=== PATIENT | male | born 1975 | race Hispanic/Latino ===

== ENCOUNTER 2018-03-15 18:48 | Inpatient (IN) | payer OTHER, SELFPAY ==
[2018-03-15 19:26] LABS: #Lymphocytes 1.3 thou/uL (1.20-3.40); #Monocytes 0.6 thou/uL (0.11-0.59); #Neutrophils 8.8 thou/uL (1.40-6.50); %Basophils 0.2 % (0.0-1.0); %Eosinophils 0.2 % (0.0-10.0); %Lymphocytes 12.1 % (21.0-51.0); %Monocytes 5.2 % (0.0-10.0); %Neutrophils 82.3 % (42.0-75.0); Hemoglobin 16.4 g/dL (14.0-18.0); Mean Corpuscular HGB CONC 34.5 g/dL (32.0-36.0); Mean Corpuscular Hemoglobin 29.5 pg (27.0-31.0); Mean Corpuscular Volume 85.5 fL (78.0-98.0); Mean Platelet Volume 7.4 fL (7.4-10.4); Platelet Count 365 thou/uL (130-400); RBC Distribution Width 11.7 % (11.5-14.5); Red Blood Cell (RBC) Count 5.55 mill/uL (4.70-6.10); White Blood Cell (WBC) Count 10.7 thou/uL (4.8-10.8)
[2018-03-15 19:38] LABS: INR-International Normal Ratio 1.1; PTT 31.4 SEC (22.9-36.1); Prothrombin Time 13.9 SEC (12.0-14.7)
[2018-03-15 19:51] LABS: ALT (SGPT) 16 U/L (8-55); AST (SGOT) 18 U/L (5-34); Albumin 3.9 g/dL (3.5-5.0); Alcohol Less than 10 mg/dL (Less than 10); Alkaline Phosphatase 114 U/L (40-150); Anion Gap 13 mmol/L (10-20); BUN (Urea Nitrogen) 13 mg/dL (8.9-20.6); Bilirubin, Total 0.3 mg/dL (0.2-1.2); Calc. Creatinine Clearance 0 mL/min (70-130); Calcium 9.9 mg/dL (7.8-10.44); Carbon Dioxide 29 mmol/L (22-29); Chloride 98 mmol/L (98-107); Estimated GFR-MDRD 70; Globulin 4.8 g/dL (2.4-3.5); Glucose 168 mg/dL (70-105); Lipase 22 U/L (8-78); Potassium 3.7 mmol/L (3.5-5.1); Protein, Total 8.7 g/dL (6.0-8.3); Sodium 136 mmol/L (136-145)
[2018-03-15 20:20] LABS: Bilirubin Negative (Negative); Blood, Urine Negative (Negative); Clarity CLEAR (Clear); Glucose, Urine (Dipstick) Negative (Negative); Leukocyte Negative (Negative); Nitrite Negative (Negative); Protein, Urine (Dipstick) Negative (Neg-Trace); Specific Gravity, Urine 1.012 (1.002-1.036)
[2018-03-15] MEDS ORDERED: Ibuprofen 800 MG TAB ONE (21:20)
[2018-03-15] MEDS ORDERED: Cyclobenzaprine 10 MG TAB ONE (21:20)
[2018-03-15 21:33] LABS: Amphetamine Not Detected (NotDetected); Barbiturates Screen Not Detected (NotDetected); Benzodiazepine Screen Not Detected (NotDetected); Cocaine Metabolite Screen Detected (NotDetected); Medtox Control Line Valid? VALID (VALID); Medtox Reader # READER 1; Methadone Not Detected (NotDetected); Methamphetamine Not Detected (NotDetected); Opiate Screen Not Detected (NotDetected); Oxycodone Screen Not Detected (NotDetected); Phencyclidine (PCP) Not Detected (NotDetected); THC/Cannabinoid Screen Not Detected (NotDetected); Tricyclic Screen Not Detected (NotDetected)
--- NOTE | 2018-03-15 23:11 | CT ---
CT LUMBAR SPINE: Technique: Multiple contiguous axial images were obtained through the lumbar spine with multiplanar r econstruction. History: Back pain. FINDINGS: The lumbar vertebrae maintain normal height and alignment. Disc spaces are preserved. Disc bulge at L2-3 seen resulting in mild central canal stenosis. Disc bulge at L3-4 also results in mild central canal stenosis. Mild anterolisthesis at L4-5. Prominent posterior facet hypertrophy. Broad based bulge. Severe centra l canal stenosis at this level. At L5-S1, diffuse disc bulge with prominent facet hypertrophy results in moderate central canal steno sis. IMPRESSION: Severe central canal stenosis at L4-5. Moderate central canal stenosis at L3-4 and L5-S1 as described . POS: [facility]
--- NOTE | 2018-03-15 23:37 | CT ---
CT THORACIC SPINE: Technique: Multiple contiguous axial images were obtained through the thoracic spine with multiplanar reconstructions. Indications: Mid back pain. No history of trauma is provided. Comparison: None . FINDINGS: Compression fracture involving the T7 vertebra results in severe loss of central and anterior height at T7. The height loss is estimated at over 75%. Fracture line extends through the entire T7 vertebra from anterior to posterior and there is mild comminution. Posterior elements appear preserved. There is also fracture involving the T8 vertebra with horizontal fracture extending from anterior to posterior. Minimal loss of height of T8. Posterior elements appear intact. The other thoracic vertebrae maintain height and alignment. There are mild degenerative changes prese nt. Review of soft tissues at T7 reveals paravertebral soft tissue prominence. There is a nodular mass li ke density which is pleural based in a paravertebral location on the left at the T7-8 level. In the c oronal plane, this mass density measures up to 5 cm craniocaudal dimension x approximately 3 cm AP di mension in the axial plane. Findings indicate neoplasm with paravertebral soft tissue involvement and pathologic fractures at T7 and T8. At the T6-7 disc space, no bulge or protrusion. At the T7-8 disc space, there is posterior disc bulge which appears to abut the cord. There is eviden ce of epidural extension of the soft tissue mass on the left at this level. T8-9: Posterior disc bulge is seen abutting the cord paracentrally on the left. IMPRESSION: There is a paravertebral mass which involves the pleura on the left at T7-8. Evidence of pathologic f ractures at T7-8 with severe compression of the T7 vertebra. Neoplasm would be suspected with possibl e epidural extension on the left at these levels. Recommend further evaluation with MRI of the thorac ic spine with and without contrast. POS: [facility]
--- NOTE | 2018-03-16 00:18 | PDOC.FPRHP ---
- History of Present Illness Chief Complaint: Abdominal pain, numbness, leg weakness History of Present Illness: 42 yo M presents for mid back pain and LUQ abdominal pain that started 2 months ago after lifting tiles, described as sharp and burning that radiates around the left side to his back. He also has RUQ pain that started 2 weeks ago that does not radiate. Both pains are worse with movement. He also has numbness bilaterally that starts at his midchest and goes down to his feet. Ascribes weakness in both legs. He denies urinary or bowel incontinence. He also has SOB and occasonal nausea, denies night sweats. In the ED, CT showed T7-T8 pathologic fractures and a L paravertebral 3x5 cm mass. He was given flexeril, IBP, and 1L of LR. Neurosurgery was consulted. - Allergies/Adverse Reactions Allergies Allergy/AdvReac Type Severity Reaction Status Date / Time No Known Allergies Allergy Unverified 03/16/18 01:18 - Home Medications Medication Instructions Recorded Confirmed Type No Known 03/16/18 03/16/18 History - History PMHx: None PSHx: None FHx: No fam hx of heart disease or cancer. HTN and DM reportedly "in everybody. " Social: Smokes crack cocaine frequently, denies using other drug use, last used yesterday. Drinks 8 beers daily, reports last drink 1 week ago. Smokes "5 cigarettes per month." - Review of Systems General: denies: fever/chills, weight/appetite/sleep changes, night sweats, fatigue Eyes: denies: eye pain, vision changes ENT: denies: nasal congestion, rhinorrhea Respiratory: reports: shortness of breath. denies: cough, congestion Cardiovascular: denies: chest pain, palpitation, edema Gastrointestinal: reports: nausea, abdominal pain. denies: vomiting, diarrhea, constipation, GI bleeding Genitourinary: denies: incontinence, dysuria Skin: denies: rashes, lesions Musculoskeletal: reports: pain. denies: tenderness Neurological: reports: numbness, weakness - Vital signs BP: [121/68] HR: [111] RR: [18] Tmax: [98.7] Pox: [96]% on [RA] Wt: [104 kg] - Physical Exam Constitutional: NAD, awake, alert and oriented, well developed HEENT: normocephalic and atraumatic, PERRLA, EOMI, conjunctiva clear, grossly normal hearing, MMM, oropharynx clear Neck: supple, no LAD Heart: RRR, normal S1/S2, no murmurs/rubs/gallops Lungs: CTAB, no respiratory distress, good air movement, no rales/rhonchi, no wheezing, no retractions Abdomen: soft, bowel sounds present, other (No TTP in LUQ and RUQ, patient states it is numb. No masses palpated, exam limited by obesity.) Musculoskeletal: normal structure, normal tone -Neurological: 4/5 on BLE for hip flexion strength. 5/5 plantar flexion and dorsiflexion bilat. Senior Tax [employer]st strength 5/5. No focal deficits. CN 2-12 intact. Numbness on mid-chest down through feet. Patellar reflexes 2+ Skin: no rash/lesions, capillary refill <2 seconds Heme/Lymphatic: no unusual bruising or bleeding, no purpura, no petechia Psychiatric: normal mood and affect, good judgment and insight, intact recent and remote memory FMR H&P: Results - Labs Result Diagrams: 03/15/18 19:15 03/15/18 19:15 Lab results: WBC 10.7 thou/uL (4.8-10.8) 03/15/18 19:15 Hgb 16.4 g/dL (14.0-18.0) 03/15/18 19:15 Hct 47.5 % (42.0-52.0) 03/15/18 19:15 MCV 85.5 fL (78.0-98.0) 03/15/18 19:15 Plt Count 365 thou/uL (130-400) 03/15/18 19:15 Neutrophils % 82.3 % (42.0-75.0) H 03/15/18 19:15 Sodium 136 mmol/L (136-145) 03/15/18 19:15 Potassium 3.7 mmol/L (3.5-5.1) 03/15/18 19:15 Chloride 98 mmol/L (98-107) 03/15/18 19:15 Carbon Dioxide 29 mmol/L (22-29) 03/15/18 19:15 BUN 13 mg/dL (8.9-20.6) 03/15/18 19:15 Creatinine 1.14 mg/dL (0.7-1.3) 03/15/18 19:15 Glucose 168 mg/dL (70-105) H 03/15/18 19:15 Calcium 9.9 mg/dL (7.8-10.44) 03/15/18 19:15 Total Bilirubin 0.3 mg/dL (0.2-1.2) 03/15/18 19:15 AST 18 U/L (5-34) 03/15/18 19:15 ALT 16 U/L (8-55) 03/15/18 19:15 Alkaline Phosphatase 114 U/L (40-150) 03/15/18 19:15 Serum Total Protein 8.7 g/dL (6.0-8.3) H 03/15/18 19:15 Albumin 3.9 g/dL (3.5-5.0) 03/15/18 19:15 Lipase 22 U/L (8-78) 03/15/18 19:15 Urine Ketones Negative mg/dL (Negative) 03/15/18 20:06 Urine Blood Negative (Negative) 03/15/18 20:06 Urine Nitrite Negative (Negative) 03/15/18 20:06 Ur Leukocyte Esterase Negative (Negative) 03/15/18 20:06 - EKG Interpretation EKG: wnl - Radiology Interpretation Other Status: image reviewed by me, report reviewed by me Additional comment: Pathologic fractures T7 (severe compression) and T8, with L paravertebral mass 5 cm (craniocaudal) x 3 cm (AP) extending from pleura FMR H&P: A/P - Problem List (1) Alcohol abuse Current Visit: Yes Status: Chronic Code(s): F10.10 - ALCOHOL ABUSE, UNCOMPLICATED (2) Crack cocaine use Current Visit: Yes Status: Chronic Code(s): F14.90 - COCAINE USE, UNSPECIFIED, UNCOMPLICATED (3) Fractured spine Current Visit: Yes Status: Acute Code(s): WCM0578 - (4) Paravertebral mass Current Visit: Yes Status: Acute Code(s): R22.2 - LOCALIZED SWELLING, MASS AND LUMP, TRUNK - Plan 42 yo M presents with paravertebral mass #Paravertebral Mass -Numbness from mid chest and down, abd pain and mid back pain x2 weeks; no bowel or urinary incontinence -EKG wnl -WBC: upper limit of normal, left shift -UA normal -Lipase negative -CT Thoracic Spine: T7 severe compression fracture, T8 fracture; Left paravertebral mass extending from the pleura T7-T8, 5x3 cm -CT Lumbar Spine: severe stenosis L4-5, mod stenosis L3-4 and L5-S1 -Neurosurgery consulted, appreciate recs -MRI pending -AM CBC -[place], Tylenol, IBP for pain control -zofran for nausea #Alcohol abuse -ASE protocol initiated -Reports 8 beers/day, reports last drink 7 days ago #Cocaine abuse -UDS + for cocaine -Patient reports frequently smoking crack cocaine, last used yesterday Dispo: >2 midnights PPX: lovenox FMR H&P: Upper Level - Pertinent history 42M presents for pain going on for 1.5 week on left back. It occurred after living heavy objects. It is not worst with food but worst with activities. Specifically denies trauma, fever, chills, sweat, N/V/D, dysuria or hematuria. Social history pertinent for cocaine use but denies other drug use. In ER, CT scan was done. It was pertinent for pathological fx of T7-T8. There was a paraspinus mass seen between T7-T8 with pleural involvement. Radiology recommends follow up MRI and neurosurgery was consulted who indicated they will see him tomorrow. - Pertinent findings Gen: Alert, oriented HEENT: Normocephalic, midline trachea CV: RRR with no apparent m/g/r Resp: CTA bilat GI: normoactive, protrubant abdomen, soft, no rigidity Ext: No edema MSK: No obvious deformities noted on exam. Pain to palpation of left throacic at T5-t7 level. Neuro: 4/5 strength in LE, sensation grossly intact, 2/4 patellar reflex, CN II- XII grossly intact - Plan Date/Time: 03/16/18 0016 I, [Jules Ly], have evaluated this patient and agree with findings/plan as outlined by internal consultant resident. Pertinent changes/additions are listed here. 1. Pathological Fx of thoracic spine - Fracture in T7-8 - Associated with canal stenosis of L3-S1, posterior disc protrusion of T7-8, T8 -9. - Neurosurgery consulted, currently planning to see patient tomorrow - Focus on pain control overnight - Consider use of decadron - At this time, exam does not suggest cauda equina. Will continue to monitor 2. Paraspinal mass - Involves pleura. Consider malignancy - In morning, MRI. Based on finding, may consult IR or Pulm to obtain sample for pathology 3. Cocaine abuse - Advise patient against cocaine use 4. Alcohol abuse - Last drink reported over 2 week ago, unlikely to go into withdrawal at this time - Advise patient against use Attending Addendum - Attending Addendum Date/Time: 03/15/18 [id number] I personally evaluated the patient and discussed the management with Dr. Reagan Tamayo /Yasmine. I agree with the History, Examination, Assessment and Plan documented above with any addition or exceptions noted below. Patient here with pain and numbness with associated spinal cord lesions and pathological fractures near mass like object. NSGY consult, will further characterize lesion tomorrow. Consider Decadron to help with neuro symptoms. Pain control as needed.
[2018-03-16] MEDS ORDERED: Ondansetron ODT 4 MG TAB SL PRN (00:25)
[2018-03-16] MEDS ORDERED: Ondansetron PF 4 MG/2 ML Vial IVP PRN (00:25)
[2018-03-16 01:12] VITALS: BMI 37.1
--- NOTE | 2018-03-16 01:17 | CON ---
DATE OF CONSULTATION: This is a 50-minute initial patient evaluation, of which greater than 50% of the exam was spent in counseling and coordinating the patient's care. Remainder of the exam was spent in review of the patient's medical records and review of appropriate imaging studies. CHIEF COMPLAINT: Mid to low back pain with bilateral lower extremity paresthesias. HISTORY OF PRESENT ILLNESS: Mr. Ross is a 42-year-old male, who presents to [facility] for the above complaints. He states, over the past 10 days to 2 weeks, he began to experience a gradual onset of the above symptoms. He states the pain originated in the low mid back and radiated into flank and into the abdomen with progression of paresthesias into the bilateral lower extremities in a nondermatomal distribution. He denies weakness in the legs or falls. He does report subjective sensory deficit in the bilateral lower extremities. He denies bowel or bladder issues. He is not on blood thinners. He does endorse tobacco use as well as crack cocaine use from time to time. Review of the patient's thoracic and lumbar spine CT shows concerning lesion in the T7 with extension into the T8. The radiology report notes possible metastatic lesion with possible pathologic fracture. There does not appear to be any type of malalignment of the spine and no fragment resulting in any central canal compromise. Review of the patient's lumbar spine is negative for acute fracture. PHYSICAL EXAMINATION: The patient is awake, alert, and appropriate. GCS currently is 15. He appears to have full strength in the bilateral upper and bilateral lower extremities with no worrisome myelopathic features on exam. He has intact sensation to light touch throughout the entire bilateral upper and bilateral lower extremities and into the truncal area. IMPRESSION AND DIAGNOSES: 1. Progressive mid to low back pain with radiation into the abdomen. 2. Bilateral lower extremity paresthesias. 3. T7 and T8 abnormality noted on CT concerning for metastatic lesion with possible pathologic fracture. PLAN: I discussed the patient's case and imaging with Dr. Cruz. Given the concern on the CT scan, we need more information and we will order MRIs of the cervical, thoracic, and lumbar spines with and without contrast. Ideally, the patient should be n.p.o. at midnight although at this time, there is no plan for neurosurgical intervention until we have results of the MRI. We will also need chest, abdomen, and pelvis CT scan with contrast to determine possible staging should this be any type of metastatic lesion. Family medicine colleagues will admit the patient and manage him medically; however, Neurosurgery will continue to follow until a definite plan is made whether the patient will require a neurosurgical intervention. At this time, Pain Control is also paramount. Please call with any changes in the patient's neurologic status, otherwise we will follow up on the MRIs once they have been completed. Job ID: [id number]
[2018-03-16] MEDS ORDERED: Acetaminophen 325 MG TAB PO PRN (01:19)
[2018-03-16] MEDS ORDERED: Enoxaparin Sodium 40 MG/0.4 ML SYRINGE SC SCH (01:19)
[2018-03-16] MEDS: HYDROcodone/Acetaminophen 5/325 mg Tablet PO PRN ×3 (01:38→18:15)
[2018-03-16 06:40] LABS: #Eosinphils 0.1 thou/uL (0.0-0.7); #Lymphocytes 1.5 thou/uL (1.20-3.40); #Monocytes 0.7 thou/uL (0.11-0.59); %Basophils 0.2 % (0.0-1.0); %Eosinophils 1.2 % (0.0-10.0); %Lymphocytes 18.2 % (21.0-51.0); %Monocytes 8.1 % (0.0-10.0); %Neutrophils 72.2 % (42.0-75.0); Hemoglobin 15.1 g/dL (14.0-18.0); Mean Corpuscular HGB CONC 34.2 g/dL (32.0-36.0); Mean Corpuscular Hemoglobin 29.5 pg (27.0-31.0); Mean Corpuscular Volume 86.2 fL (78.0-98.0); Mean Platelet Volume 7.8 fL (7.4-10.4); Platelet Count 339 thou/uL (130-400); RBC Distribution Width 11.6 % (11.5-14.5); Red Blood Cell (RBC) Count 5.11 mill/uL (4.70-6.10); White Blood Cell (WBC) Count 8.3 thou/uL (4.8-10.8)
[2018-03-16] MEDS: Ibuprofen 800 MG TAB PO SCH ×3 (07:13→21:30)
[2018-03-16] MEDS ORDERED: Iopamidol-370 76% 500 ML 1 ML ONE (09:00)
--- NOTE | 2018-03-16 10:53 | CT ---
CHEST CT WITH IV CONTRAST ABDOMEN AND PELVIC CT WITH IV CONTRAST: History: 42-year-old male with possible metastatic spinal lesion with mid back pain. Comparison: Noncontrast thoracic spine CT scan 03-15-18. FINDINGS: There is some left sided pleural thickening and minimal pleural based parenchymal changes in the left base and costophrenic angle region. No mediastinal mass. Very minimal right sided posterior pleural thickening. Again noted are pathologic fractures involving T7 and T8 with paraspinal soft tissue mass /masses with evidence for some epidural mass particularly ventrally adjacent to the posterior aspects of the T7 and T8 vertebral bodies. There are some destructive changes of the left T8 costovertebral joint as well. There does appear to be some potentially significant spinal canal stenosis at T7 and T 8 from the ventral epidural mass. Possibilities include that of neoplasm versus infection. This mass would be potentially amendable to percutaneous aspiration biopsy. In the abdomen and pelvis, the liver, gallbladder, pancreas, spleen, adrenal glands are unremarkable. The kidneys are unremarkable bilaterally. Normal appearing appendix. No evidence for adenopathy. The re is some multilevel severe spinal canal stenosis, most marked at L4-5. IMPRESSION: Extensive destructive changes involving T7 and T8 vertebral bodies with associated soft tissue mass i ncluding a prominent epidural component, destructive changes of the left T8 costovertebral joint with neoplasm being considered most likely followed by infection as etiologies. This paraspinal mass woul d be amendable to percutaneous aspiration biopsy. Severe lumbar spinal canal stenosis at L4-5. No neema dence for other significant acute process within the chest, abdomen, or pelvis. POS: [facility]
--- NOTE | 2018-03-16 13:23 | MRI ---
MRI CERVICAL SPINE WITH AND WITHOUT CONTRAST: Technique: Multiplanar, multisequence images of the cervical spine obtained. Post contrast images obt ained with administration of IV MultiHance. Indications: Possible metastatic spinal lesion. This is a follow up to a CT thorax of the spine which revealed a paravertebral mass at T7-8 with pathologic fractures at T7-8 and epidural extension. FINDINGS: The cervical vertebrae maintain normal height and alignment. The disc spaces are preserved. There is severe motion artifact, which especially degrades the T2 sagittal and axial images. This jess ecially degrades the cord at the C4, C5, and C6 levels. There is abnormal T2 signal within the cord a t these levels. There is disc bulge and spondylosis at C4-5 which does impinge on and compress the cord resulting in moderate cervical canal stenosis at this level. No cord enhancement is seen on the post contrast imag es. I cannot exclude myelomalacia within the cord at this level, however, the motion artifact prevents ad equate assessment of the cord signal. No other significant disc bulge or spondylosis. Cord is otherwise unremarkable. There is a congenital ly small cervical canal due to shortened pedicles. Post contrast images show enhancement surrounding the tip of the C7 vertebra. There is no osseous enh ancement and this is favored to represent inflammatory change rather than metastatic. No other abnormal enhancement identified. IMPRESSION: 1. Disc bulge and spondylosis at C4-5 compresses the cord and there is moderate cervical canal stenos is at this level. There is no cord enhancement. Evaluation of the cord is severely limited due to mot ion artifact on the T2 sequences. Myelomalacia cannot be excluded. Recommend patient return for repea t T2 sagittal and axial images at a time when patient can have reduced motion artifact. 2. There is focal enhancement in the soft tissues surrounding the tip of the spinus process at C7 at the site of the posterior ligament. No osseous enhancement. This is favored to be inflammatory rather than neoplastic. No other abnormal enhancement identified. POS: [facility]
--- NOTE | 2018-03-16 13:33 | MRI ---
MRI LUMBAR SPINE WITH AND WITHOUT CONTRAST: Technique: Multiplanar, multisequence MRI images were obtained through the lumbar spine pre and post contrast. Post contrast images were obtained with administration of IV MultiHance. Indications: Possible metastatic spinal lesion. Low back pain. Correlation: CT thoracic and lumbar spines performed yesterday. Thoracic CT shows a paravertebral mas s with known involvement at the T7-8 level. See MRI thoracic spine for characterization of those find ings. IMPRESSION: The lumbar vertebral maintain normal height and alignment and exhibit normal signal. The disc spaces are preserved with mild degenerative change in the L4-5 disc space. Congenitally small canal due to shortened pedicles. Mild bulge at L3-4 and facet hypertrophy results in mild to moderate central canal stenosis. Slight anterolisthesis at L4-5 with diffuse bulge and prominent facet and ligamentous hypertrophy res ults in severe central canal stenosis at this level. There is bilateral foraminal stenosis present. T his corresponds to the CT findings from yesterday. Mild central canal stenosis at L5-S1 is present primarily due to posterior hypertrophic change and co ngenitally small canal. There is bilateral foraminal stenosis at L5-S1. No abnormal enhancement. No evidence of metastasis involving the lumbar spine. IMPRESSION: 1. Congenitally small canal due to shortened pedicles. Severe central canal stenosis at L4-5 with tez ateral foraminal stenosis. Moderate central canal stenosis at L3-4 and L5-S1 with foraminal stenosis. POS: [facility]
--- NOTE | 2018-03-16 14:01 | MRI ---
MRI THORACIC SPINE WITH AND WITHOUT CONTRAST: Date: 03/16/18 HISTORY: 42-year-old male with pathologic fracture of thoracic spine. The findings were discussed by telephone with PA, Sukumar Fairchild, at the time of this dictation. TECHNIQUE: Multisequence MRI of thoracic spine obtained pre and post IV injection of 20 mL of MultiHance Gadolin ium based contrast agent, in sagittal and axial planes. FINDINGS: Heterogeneously hypointense T1 signal, and heterogeneously mixed hyperintense and hypointense signal on FLAIR and T2 WI, involving the T7 and T8 vertebral bodies. There is anterior wedge compression fra cture deformity of T7 with maximum of approximately 75% loss of height far anteriorly (based on the C T of yesterday). There is mild, approximately 10% loss of height of the mid portion of the T8 vertebr al body posteriorly. The enhancement of bone marrow is extensive, but there are regions of nonenhance ment at the superior aspect of T8 vertebral body and throughout the mid portions of the T7 vertebral body. There is also abnormal bone marrow enhancement involving the left side of the T6 vertebral body , although the T6-7 disc space is preserved, with no abnormal signal or abnormal enhancement. There i s T2 hyperintensity and mild partial enhancement of the T7-8 disc space. There is thick, heterogeneou sly enhancing soft tissue mass component surrounding the T7 and T8 vertebral bodies. In the preverteb ral space, this extends superiorly at least up to the T5 level, and extends inferiorly down to at willy st the T9-10 level. There is involvement by abnormal bone marrow signal and abnormal bone marrow enha ncement involving the bilateral pedicles and superior articular facets of T7 and T8, bilateral transv erse processes of T8, and right T7 transverse process. There is epidural enhancing mass component cau sing severe central spinal canal stenosis from upper T7 to lower T8 levels, that significantly compre sses the spinal cord. Of the prevertebral soft tissue mass component, there is an approximately 2 x 3 cm component posterior to the descending thoracic aorta in the left pleural space with thick rim enh ancement and nonenhancing central liquid component consistent with abscess. There is too much motion to evaluate for intramedullary signal abnormality, but there is probably edema at the levels of compr ession. No definite syringohydromyelia. IMPRESSION: 1. Severe destructive process with pathologic fractures and large soft tissue components, at T7 and T8. 2. Epidural soft tissue component causes significant cord compression. 3. This is evidence for infectious spondylitis, either tuberculous or bacterial. CODE CR. POS: [facility]
[2018-03-16] MEDS: Enoxaparin Sodium 40 MG/0.4 ML SYRINGE SC SCH (21:31)
--- NOTE | 2018-03-17 00:43 | CON ---
DATE OF CONSULTATION: 03/16/2018 HISTORY OF PRESENT ILLNESS: A 42-year-old Latin-Malag[place] gentleman, who was admitted to the hospital with bilateral low extremity pain and back pain in the thoracic lumbar area. This has been going for almost two weeks. 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 He drinks on average eight beers a day. He smokes crack cocaine every other day. He smokes 3 to 4 cigarettes a week without any previous history of TB, pneumonia, bronchial asthma. Pulmonary sinha, denies any coughing, wheezing, chest pain, chills, or sweats. He takes no medication on a regular basis. He is able to walk a fair distance without getting significant pain or numbness in his legs, but the pain has been persistent. PAST MEDICAL HISTORY: Otherwise no history of diabetes and hypertension. PREVIOUS SURGERIES: Knee surgery as a kid. CHRONIC MEDICATIONS: None. ALLERGIES: NONE. REVIEW OF SYSTEMS: Ten point negative. PHYSICAL EXAMINATION: GENERAL: Appears to be in no acute distress. VITAL SIGNS: Saturations are 97 on room air, respirations are 14, temperature is 98, blood pressure is 127/78. CHEST: No wheezing. No crackles. CARDIAC: Normal S1 and S2. No gallops. ABDOMEN: Soft. EXTREMITIES: No edema. NEUROLOGIC: He is awake, alert, responsive, moves all 4 extremities. LABORATORY DATA: White count is 8000, H and H 15 and 43, and platelet count is normal. His lytes are normal. His drug screen shows cocaine. Alcohol level is less than 10. Chest x-ray was reviewed, which did not show acute infiltrate. CT of the chest, abdomen, and pelvis was performed, which showed extensive destructive changes involving T7, T8 vertebral bodies with soft tissue mass, epidural component extending to the pleural surface. IMPRESSION: 1. Thoracic paraspinal abscess probably. 2. Drug abuse. 3. Alcohol abuse. Echo is being ordered to rule out endocarditis. We will consider Infectious Disease consult once we have input from Neurosurgery regarding treatment plan. There is nothing additional to at this stage, pulmonary sinha, unless he has a complication, i.e. pleural effusion from his extension of the T7, T8 infectious TIME SPENT: Pulmonary followup consultation note 70 minutes, 50% direct patient care. Job ID: [id number]
[2018-03-17] MEDS: HYDROcodone/Acetaminophen 5/325 mg Tablet PO PRN ×4 (03:33→20:53)
[2018-03-17 06:35] LABS: #Eosinphils 0.1 thou/uL (0.0-0.7); #Lymphocytes 1.2 thou/uL (1.20-3.40); #Monocytes 0.7 thou/uL (0.11-0.59); #Neutrophils 5.7 thou/uL (1.40-6.50); %Basophils 0.2 % (0.0-1.0); %Eosinophils 1.9 % (0.0-10.0); %Lymphocytes 15.4 % (21.0-51.0); %Monocytes 9.1 % (0.0-10.0); %Neutrophils 73.5 % (42.0-75.0); Mean Corpuscular HGB CONC 33.6 g/dL (32.0-36.0); Mean Corpuscular Hemoglobin 29.1 pg (27.0-31.0); Mean Corpuscular Volume 86.6 fL (78.0-98.0); Mean Platelet Volume 7.6 fL (7.4-10.4); Platelet Count 328 thou/uL (130-400); RBC Distribution Width 11.7 % (11.5-14.5); Red Blood Cell (RBC) Count 5.52 mill/uL (4.70-6.10); White Blood Cell (WBC) Count 7.8 thou/uL (4.8-10.8)
[2018-03-17] MEDS: Ibuprofen 800 MG TAB PO SCH ×3 (06:39→21:00)
--- NOTE | 2018-03-17 08:06 | PDOC.FM ---
- Subjective Subjective: Patient seen at bedside this morning resting comfortably. States that pain is well controlled and denies new or worsening symptoms. No acute events over night. - Objective MAR Reviewed: Yes Vital Signs & Weight: Vital Signs (12 hours) Temp Pulse Resp BP Pulse Ox 03/17/18 04:52 98.0 F 80 20 129/85 95 03/17/18 00:00 98.2 F 81 16 129/87 97 Weight Weight 104.326 kg I&O: 03/16/18 03/17/18 03/18/18 06:59 06:59 06:59 Intake Total 540 Output Total 350 Balance 190 Result Diagrams: 03/17/18 05:47 03/15/18 19:15 Radiology: MRI T spine c/w infectious spondylitis at T7 <Ministerio Aguilera - Last Filed: 03/17/18 08:04> - Objective Vital Signs & Weight: Vital Signs (12 hours) Temp Pulse Resp BP Pulse Ox 03/17/18 08:00 98.4 F 81 14 127/88 95 03/17/18 04:52 98.0 F 80 20 129/85 95 03/17/18 00:00 98.2 F 81 16 129/87 97 Weight Weight 104.326 kg I&O: 03/16/18 03/17/18 03/18/18 06:59 06:59 06:59 Intake Total 540 Output Total 350 Balance 190 Result Diagrams: 03/17/18 05:47 03/15/18 19:15 <Marcelino Rae - Last Filed: 03/17/18 09:49> Phys Exam - Physical Examination Constitutional: NAD HEENT: moist MMs Neck: no JVD Respiratory: clear to auscultation bilateral Cardiovascular: RRR, no significant murmur Musculoskeletal: no edema Decreased sensation to both LE. Normal strength Psychiatric: A&O x 3 Skin: no rash <Ministerio Aguilera - Last Filed: 03/17/18 08:04> Dx/Plan (1) Other infective spondylopathies, thoracic region Code(s): M46.54 - OTHER INFECTIVE SPONDYLOPATHIES, THORACIC REGION Status: Acute (2) Alcohol abuse Code(s): F10.10 - ALCOHOL ABUSE, UNCOMPLICATED Status: Chronic (3) Crack cocaine use Code(s): F14.90 - COCAINE USE, UNSPECIFIED, UNCOMPLICATED Status: Chronic - Plan Plan: T7 infectious spondylitis - unknown pathogen at this time. DDx include TB. Continue precautions until quant gold results. - Dr Estevez has been consulted, CT guided biopsy has been ordered and should be completed today - Neuro surg has been consulted and TLSO brace has been placed. Would expect them to wait for infectious work up prior to surgical intervention. - Neuro symptoms are stable at this time. 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 Would expect hospital stay of >48 hours. <Ministerio Aguilera - Last Filed: 03/17/18 08:04> Attending Addendum - Attending Addendum Date/Time: 03/17/18 0948 I personally evaluated the patient and discussed the management with Dr. Aguilera. I agree with the History, Examination, Assessment and Plan documented above with any addition or exceptions noted below. Patient stable. There is concern that his paraspinal mass is actually abscess formation and possible TB. ID on board, on airborne precautions. Awaiting IR biopsy today and further mgmt per those results. <Marcelino Rae - Last Filed: 03/17/18 09:49>
--- NOTE | 2018-03-17 09:44 | PRG ---
DATE OF SERVICE: 03/17/2018 SUBJECTIVE: Cody is scheduled for a CT-guided biopsy of the thoracic spine. OBJECTIVE: VITAL SIGNS: His temperature 98, pulse 84, sats 98% on room air, respirations 14, blood pressure 122/88. CHEST: He denies any difficulty breathing. No wheezing. No crackles. CARDIAC: Normal S1 and S2. No gallops. ABDOMEN: No masses. IMPRESSION: Destructive T7-T8 thoracic vertebrae with a large soft tissue component, rule out infection versus neoplasm. PLAN: Undergo CT-guided aspiration biopsy today. Supportive care. Pulmonary will follow. Job ID: [id number]
--- NOTE | 2018-03-17 10:34 | PRG ---
DATE OF SERVICE: 03/17/2018 This is a 30-minute initial hospital visit note, in which 30 minutes were spent reviewing the imaging and record evaluation, examination, patient formulation with plan greater than 50% time was spent in counseling on Piter Ross. CHIEF COMPLAINT: T7-T8 osteo diskitis with epidural abscess and phlegmon. I reviewed the notes of my colleague Sukumar Fairchild PA-C, and I agreed with his content. HISTORY OF PRESENT ILLNESS: Mr. Ross is a 42-year-old man, who presented with back pain. MRI and CT demonstrated osteo diskitis with destruction of the T7 and T8 vertebral bodies and disk space with epidural and paraspinal mass consistent with epidural abscess. The concern is this appears to be more of a tuberculosis appearance, and as such, Dr. Estevez has been consulted. The patient is on respiratory precautions. Obviously, this could be a bacterial infection as well and blood cultures have been obtained. I would recommend CT-guided needle biopsy as the patient on exam is alert, appropriate, and then a well-fitting TLSO clamshell brace with full strength throughout his bilateral lower extremity myotomes. He does have spinal cord compression and signal abnormality, and I would advocate the brace at all times for duration of 3 months only should he fail management with antibiotic or antitubercular medication and brace with associated neurologic decline or mechanical instability to the operating room. My hope is through CT-guided needle biopsy or blood culture we can identify the bacteria involved or tuberculosis. IMPRESSION: T7-T8 osteo diskitis with epidural abscess and spinal cord compression. Job ID: [id number]
--- NOTE | 2018-03-17 11:17 | CON ---
DATE OF CONSULTATION: 03/16/2018 REASON FOR CONSULTATION: Spinal inflammatory process. HISTORY OF PRESENT ILLNESS: A 42-year-old with a history of progressively worsening back pain with radiculopathy in the midthoracic area for the past 2 months. He initially blamed on physical activity for work. With worsening, he eventually ended up having an evaluation in the emergency room and CT scan showed T7 and T8 fractures in paravertebral mass. The patient had MRIs which showed the findings described below. He denies any headaches. No visual symptoms, sore throat, odynophagia, or dysphagia. No vomiting. No cough or sputum production. No chest pain. No genitourinary symptoms. No diarrhea or constipation. No joint symptoms. No skin disorder. Feels numbness in lower extremities and some weakness. PAST MEDICAL HISTORY: Otherwise negative. PAST SURGICAL HISTORY: Negative except for some foot intervention in the past associated with abscess formation. FAMILY HISTORY: Diabetes and hypertension. SOCIAL HISTORY: He uses cocaine. Drinks daily. Smokes intermittently. CURRENT MEDICATIONS: 1. [place]. 2. Lovenox. 3. Motrin. PHYSICAL EXAMINATION: VITAL SIGNS: T-max 98, blood pressure 120/85, pulse 80, respirations 20, and O2 saturation 95%. SKIN: Exam is not remarkable. GENERAL: The patient has a peripheral IV access and voiding in the urinal. LYMPH: No lymphadenopathy. HEENT: Ocular movements are conjugate. Oral cavity normal. Teeth in fairly decent shape. NECK: Supple. No jugular vein distention or carotid bruits. LUNGS: Symmetric. Clear breath sounds. HEART: S1 and S2. Regular rate. No S3 or S4. ABDOMEN: Soft, not distended, or tender. No bladder distention. Tenderness in the mid thoracic spine area noted. EXTREMITIES: Pulses are 1+ in the dorsalis pedis. He is able to lift his legs from the bed and flex and extend them with good strength. NEUROLOGIC: Plantar responses are flexor with no clonus. His cognitive function appears to be intact. LABORATORY DATA: White cell count 10.7, hemoglobin normal, platelets 365 with 82% neutrophils. INR 1.1. Chemistry with glucose 168. Serum total protein 8.7 and globulin 4.8. Urinalysis normal. Cocaine metabolites detected in the toxic screen. Microbiology pending. Echocardiogram with normal EF, some diastolic dysfunction. Thoracic spine MRI, severe destructive process with pathologic fractures and large soft tissue components T7 and T8. Soft tissue component causes severe cord compression. CT abdomen, pelvis, and chest with extensive destructive changes in T7 and T8, and soft tissue mass. ASSESSMENT: Otherwise, healthy middle-aged man with destructive thoracic spine process with paravertebral mass. Differential diagnosis includes malignancy versus atypical infection, particularly mycobacterium tuberculosis. Fungal infection such as blastomycosis, histoplasmosis, or less likely. Check human immunodeficiency virus, hepatitis C, syphilis serology. Get a CT-guided biopsy of the soft tissue mass for acid-fast stain, fungal stain, routine cultures and histopathology evaluation. Blood cultures x3. Job ID: [id number]
[2018-03-17] MEDS ORDERED: Sodium Bicarbonate 2.5 MEQ/5 ML VIAL ONE (11:19)
[2018-03-17] MEDS ORDERED: Midazolam HCl 2 mg/2 ml Vial ONE (11:19)
[2018-03-17] MEDS ORDERED: Fentanyl 100 MCG/2 ML VIAL ONE (11:19)
--- NOTE | 2018-03-17 14:27 | CT ---
CT GUIDED DEEP BONE BIOPSY: Date: 03/17/18 HISTORY: Osteomyelitis, diskitis. COMPARISON: MRI lumbar spine and thoracic spine prior day. FINDINGS: The patient was brought to the CT suite. All questions were answered. Informed consent was obtained, Timeout was performed. The patient's back was prepped and draped in the normal sterile fashion. Approximately 7 mL of lidoca ine was instilled into the superficial and deep soft tissues. Using CT guidance, the T7-T8 interspace was accessed. A small amount of tissue was initially aspirate d using an 18 gauge Chiba needle. Next, a total of two 22 mm 20 gauge cores were then obtained. Patho logy confirmed adequacy. IMPRESSION: Technically successful CT guided paraspinal/diskitis/osteomyelitis biopsy. POS: JELENA
[2018-03-17 15:33] LABS: HIV (1/2) Antibody/Antigen Non-Reactive (NonReactive); HIV 1/2 INDEX 0.11 S/CO (<1.00)
[2018-03-17] MEDS: Enoxaparin Sodium 40 MG/0.4 ML SYRINGE SC SCH (20:53)
[2018-03-18] MEDS: HYDROcodone/Acetaminophen 5/325 mg Tablet PO PRN ×3 (02:45→17:36)
[2018-03-18] MEDS: Ibuprofen 800 MG TAB PO SCH ×3 (05:43→21:26)
[2018-03-18 05:50] LABS: #Eosinphils 0.2 thou/uL (0.0-0.7); #Lymphocytes 1.3 thou/uL (1.20-3.40); #Monocytes 0.7 thou/uL (0.11-0.59); #Neutrophils 5.4 thou/uL (1.40-6.50); %Basophils 0.3 % (0.0-1.0); %Eosinophils 2.5 % (0.0-10.0); %Lymphocytes 16.6 % (21.0-51.0); %Monocytes 9.3 % (0.0-10.0); %Neutrophils 71.2 % (42.0-75.0); Mean Corpuscular Hemoglobin 28.6 pg (27.0-31.0); Mean Corpuscular Volume 86.4 fL (78.0-98.0); Mean Platelet Volume 7.8 fL (7.4-10.4); Platelet Count 309 thou/uL (130-400); RBC Distribution Width 11.6 % (11.5-14.5); Red Blood Cell (RBC) Count 5.25 mill/uL (4.70-6.10); White Blood Cell (WBC) Count 7.6 thou/uL (4.8-10.8)
--- NOTE | 2018-03-18 08:08 | PDOC.FM ---
- Subjective Subjective: Patient seen at bedside this morning resting comfortably. He has loosened his TSLO due to complaint of chest/abdominal cramping. He denies back pain or worsening neuro symptoms. CT guided biopsy was completed yesterday. - Objective MAR Reviewed: Yes Vital Signs & Weight: Vital Signs (12 hours) Temp Pulse Resp BP Pulse Ox 03/18/18 05:00 100 03/18/18 04:00 98.4 F 86 18 130/89 96 03/18/18 00:00 98 F 80 18 119/64 97 Weight Weight 104.326 kg I&O: 03/17/18 03/18/18 03/19/18 06:59 06:59 06:59 Intake Total 540 700 240 Output Total 350 550 350 Balance 190 150 -110 Result Diagrams: 03/18/18 05:13 03/15/18 19:15 Phys Exam - Physical Examination Constitutional: NAD HEENT: moist MMs Neck: no JVD Respiratory: clear to auscultation bilateral Cardiovascular: RRR, no significant murmur Gastrointestinal: soft, non-tender Musculoskeletal: no edema Decreased sensation of abdomen and both LE Psychiatric: A&O x 3 Skin: no rash, normal turgor Dx/Plan (1) Other infective spondylopathies, thoracic region Code(s): M46.54 - OTHER INFECTIVE SPONDYLOPATHIES, THORACIC REGION Status: Acute (2) Alcohol abuse Code(s): F10.10 - ALCOHOL ABUSE, UNCOMPLICATED Status: Chronic (3) Crack cocaine use Code(s): F14.90 - COCAINE USE, UNSPECIFIED, UNCOMPLICATED Status: Chronic - Plan Plan: T7 infectious spondylitis - unknown pathogen at this time. DDx include TB. Continue precautions until quant gold results. - prelim biopsy results show no bacterial pathogen. Cultures pending - Dr Estevez has been consulted - Neuro surg has been consulted and TLSO brace has been placed. Would expect them to wait for infectious work up prior to surgical intervention. - Neuro symptoms are stable at this time. - [place], Tylenol, IBP for pain control. 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 Would expect hospital stay of >48 hours. Addendum - Attending - Attending Attestation Date/Time: 03/18/18 4763 I personally evaluated the patient and discussed the management with Dr. Aguilera. I agree with the History, Examination, Assessment and Plan documented above with any addition or exceptions noted below. Patient stable, has some pain in his side assocaited with the TLSO brace and muscle spasms. Pathology pending and further mgmt and treatment is pending that result. Pain control as needed. Neuro status stable.
--- NOTE | 2018-03-18 09:57 | PRG ---
DATE OF SERVICE: 03/18/2018 SUBJECTIVE: This morning, he is awake, responsive, lot of back pain, await results from the CT-guided spinal mass. OBJECTIVE: VITAL SIGNS: Temperature 98.0, saturations 100% on room air, respiratory rate 18, and blood pressure 130/89. CHEST: Decreased breath sounds. No wheezing. CARDIAC: Normal S1 and S2. No gallops. ABDOMEN: No masses. IMPRESSION: 1. Spinal mass, status post CT-guided biopsy. 2. Await culture path report. 3. Pulmonary sinha, nothing additional to do at this stage. Treatment depending on the path report. Job ID: [id number]
[2018-03-18] MEDS: Docusate 100 MG CAP PO SCH ×2 (10:41→21:26)
[2018-03-18] MEDS: Cyclobenzaprine 10 MG TAB PO PRN ×2 (12:12→21:25)
[2018-03-18] MEDS: Enoxaparin Sodium 40 MG/0.4 ML SYRINGE SC SCH (21:26)
[2018-03-19] MEDS: Ibuprofen 800 MG TAB PO SCH ×3 (06:06→21:04)
--- NOTE | 2018-03-19 06:16 | PDOC.FM ---
- Subjective Subjective: 42 yo male seen at bedside this AM. Patient states he an OK night. He states that his muscle cramps in his abdomen are causing him the most amount of distress. He states he doesn't like using the brace. He has not been seen or heard of the biopsy results as of yet. Patient denies fevers, chills, sob, or chest pain. Patient does complain of "numbness" below his brace. He however is NV intact on exam. Patient has no other complaints. - Objective Vital Signs & Weight: Vital Signs (12 hours) Temp Pulse Resp BP Pulse Ox 03/19/18 03:58 98.3 F 85 20 130/83 97 03/18/18 23:39 98.4 F 90 20 128/76 96 03/18/18 20:32 97.6 F 100 20 131/88 97 03/18/18 20:00 97 Weight Weight 104.326 kg I&O: 03/17/18 03/18/18 03/19/18 06:59 06:59 06:59 Intake Total 540 700 240 Output Total 350 550 350 Balance 190 150 -110 Result Diagrams: 03/19/18 06:53 03/15/18 19:15 Phys Exam - Physical Examination Constitutional: NAD HEENT: moist MMs Neck: full ROM Respiratory: no wheezing, clear to auscultation bilateral Cardiovascular: RRR, no significant murmur Musculoskeletal: no edema, pulses present in TLSO back brace Neurological: non-focal, normal sensation, moves all 4 limbs Psychiatric: normal affect Dx/Plan (1) Paravertebral mass Code(s): R22.2 - LOCALIZED SWELLING, MASS AND LUMP, TRUNK Status: Acute (2) Other infective spondylopathies, thoracic region Code(s): M46.54 - OTHER INFECTIVE SPONDYLOPATHIES, THORACIC REGION Status: Acute (3) Fractured spine Code(s): [id number] - Status: Acute (4) Alcohol abuse Code(s): F10.10 - ALCOHOL ABUSE, UNCOMPLICATED Status: Chronic (5) Crack cocaine use Code(s): F14.90 - COCAINE USE, UNSPECIFIED, UNCOMPLICATED Status: Chronic - Plan Plan: T7 infectious spondylitis - unknown pathogen at this time. DDx include TB. Continue precautions until quant gold results. - prelim biopsy results show no bacterial pathogen/acid fast pathogen. Cultures pending - Dr Estevez has been consulted - Neuro surg has been consulted and TLSO brace has been placed. Would expect them to wait for infectious work up prior to surgical intervention. - Neuro symptoms are stable at this time. - [place], Tylenol, IBP for pain control. - Increase Flexeril to 10 mg TID scheduled to attempt to control symptoms. 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 Addendum - Attending - Attending Attestation Date/Time: 03/19/18 6153 I personally evaluated the patient and discussed the management with Dr. Ruggiero. I agree with the History, Examination, Assessment and Plan documented above with any addition or exceptions noted below. Patient feeling stable, continues to have muscle spasms on occasion associated with his TLSO brace. His TB studies have so far resulted as negative. Still unknown what the etiology of his paraspinal mass is, awaiting pathology report. Pulm, NSGY, and ID on board and further mgmt is pending that biopsy result. Continue pain control as necessary.
[2018-03-19 06:17] LABS: A/G Ratio 0.8 (0.7-1.7); Albumin 3.4 g/dL (2.9-4.4); Alpha 1 0.3 g/dL (0.0-0.4); Beta 1.2 g/dL (0.7-1.3); Gamma 1.9 g/dL (0.4-1.8); Globulin, Total 4.5 g/dL (2.2-3.9); M-Spike Not Observed g/dL (Not Observed)
[2018-03-19 08:13] LABS: #Eosinphils 0.3 thou/uL (0.0-0.7); #Lymphocytes 1.1 thou/uL (1.20-3.40); #Monocytes 0.7 thou/uL (0.11-0.59); #Neutrophils 4.6 thou/uL (1.40-6.50); %Basophils 0.4 % (0.0-1.0); %Eosinophils 3.8 % (0.0-10.0); %Monocytes 9.8 % (0.0-10.0); Mean Corpuscular HGB CONC 33.3 g/dL (32.0-36.0); Mean Corpuscular Hemoglobin 28.6 pg (27.0-31.0); Mean Corpuscular Volume 85.9 fL (78.0-98.0); Mean Platelet Volume 7.9 fL (7.4-10.4); Platelet Count 313 thou/uL (130-400); RBC Distribution Width 11.6 % (11.5-14.5); Red Blood Cell (RBC) Count 5.25 mill/uL (4.70-6.10); White Blood Cell (WBC) Count 6.7 thou/uL (4.8-10.8)
[2018-03-19] MEDS: Docusate 100 MG CAP PO SCH ×2 (09:57→21:04)
[2018-03-19] MEDS: Cyclobenzaprine 10 MG TAB PO SCH ×3 (09:58→21:04)
--- NOTE | 2018-03-19 10:28 | PRG ---
DATE OF SERVICE: 03/19/2018 SUBJECTIVE: has been afebrile for 2 weeks. OBJECTIVE: VITAL SIGNS: Pulse is 79, respiratory rate 18, saturations 98% on room air, and blood pressure 130/85. GENERAL: Except for pain, he has no other symptoms. CHEST: Decreased breath sounds. No wheezing. CARDIAC: Normal S1 and S2. No gallops. ABDOMEN: No masses. IMPRESSION AND PLAN: So far, smears from the biopsy were negative for acid-fast, this is clearly not TB. Destructive lesion, T7-T8, awaiting final path. If there is no obvious diagnosis, he may require surgical intervention. Pulmonary and Critical Care will follow at a distance. Please call if he is going back to the ICU. Job ID: [id number]
--- NOTE | 2018-03-19 10:59 | PRG ---
DATE OF SERVICE: 03/19/2018 This is a 15 minutes subsequent visit, in which 15 minutes were spent reviewing the imaging record, evaluation, examination of the patient, and formulation of plan. Greater than 50% if time was spent in counseling on Piter Ross. Mr. Ross's cultures remain pending. He did mobilize to the bathroom, but did notice leg weakness. On exam, he has excellent strength throughout his lower extremity myotomes. Again, I have recommended again surgical intervention here as the patient I strongly suspect has tuberculosis or some sort of bacterial infection. He has a granulomatous reaction with focal necrosis on his needle biopsy this was also negative for malignancy and also negative for acid-fast bacilli, although this does not certainly rule out tuberculosis. Dr. Estevez is involved, and again, I would recommend again surgical intervention here as the chance of persistent wound healing substantial with these patients. Job ID: [id number]
[2018-03-19] MEDS ORDERED: Ethambutol HCl 400 MG TAB PO SCH (15:00)
[2018-03-19] MEDS ORDERED: Pyrazinamide 500 MG TAB PO SCH (15:15)
[2018-03-19] MEDS ORDERED: Rifampin 300 MG CAP PO SCH (15:15)
[2018-03-19] MEDS ORDERED: Isoniazid 100 MG TAB PO SCH (15:15)
--- NOTE | 2018-03-19 20:53 | PRG ---
DATE OF SERVICE: 03/19/2018 SUBJECTIVE: The patient is about the same, is neurologically stable with good strength in lower extremities. Denies any headaches. No shortness of breath. No cough. No sputum production. OBJECTIVE: VITAL SIGNS: His temperature has been normal through the hospital stay. Other vital signs are normal. GENERAL: Awake, alert, oriented. LUNGS: Clear. HEART: S1, S2. Regular rate. ABDOMEN: Soft. EXTREMITIES: Moves extremities equally. Plantar response are flexor. No bladder distention. LABORATORY DATA: White cell count 6.7, hemoglobin 15, platelets 313. Chemistry with globulin 4.5, with no M spike noted. HIV nonreactive. The pathology is back and it showed caseating granulomas. Acid-fast was negative. Cultures are pending from the microbiology specimen. 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 We will start for drug regimen plus pyridoxine, get in touch with the health department to plan outpatient directly observed therapy and continue monitoring clinically without surgical intervention as per Dr. Cruz's assessment unless there is deterioration of his neurological status in the future. Job ID: [id number]
[2018-03-19] MEDS: Enoxaparin Sodium 40 MG/0.4 ML SYRINGE SC SCH (21:04)
[2018-03-20] MEDS: HYDROcodone/Acetaminophen 5/325 mg Tablet PO PRN ×2 (03:52→10:36)
[2018-03-20] MEDS: Isoniazid 100 MG TAB PO SCH (05:40)
[2018-03-20] MEDS: Ibuprofen 800 MG TAB PO SCH ×3 (05:40→22:19)
--- NOTE | 2018-03-20 06:18 | PDOC.FM ---
- Subjective Subjective: Patient has no change overnight. Patient states that he is wanting to be home for [place]. He is agreeable to skilled nursing TB treatment. Patient states that his biggest complaint remains his abdominal cramps. He states that the flexeril helps, but it makes him sleepy. Patient denies any new symptoms such as fever, chills, chest pain, sob, or cough. No other complaints. - Objective Vital Signs & Weight: Vital Signs (12 hours) Temp Pulse Resp BP BP Pulse Ox 03/20/18 04:00 98.7 F 86 18 122/78 97 03/19/18 23:49 98.6 F 88 20 115/72 96 03/19/18 20:00 99.1 F 92 24 H 123/78 96 Weight Weight 104.326 kg I&O: 03/18/18 03/19/18 03/20/18 06:59 06:59 06:59 Intake Total 281 664 0522 Output Total 633 460 0935 Balance 150 -270 -120 Result Diagrams: 03/19/18 06:53 03/15/18 19:15 Phys Exam - Physical Examination Constitutional: NAD HEENT: moist MMs Neck: supple, full ROM Respiratory: no wheezing, clear to auscultation bilateral Cardiovascular: RRR, no significant murmur Musculoskeletal: no edema, pulses present TLSO brace in place Neurological: normal sensation, moves all 4 limbs Psychiatric: A&O x 3 Skin: no rash Dx/Plan (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 DDx include TB. Continue precautions until quant gold results. - prelim biopsy results show no bacterial pathogen/acid fast pathogen. Cultures pending - Dr Estevez has been consulted and will treat like TB - Neuro surg has been consulted and TLSO brace has been placed. - Neursurgery has stated no surgery unless acute Neuro changes - Neuro symptoms are stable at this time. - [place], Tylenol, IBP for pain control. - Increase Flexeril to 10 mg TID scheduled to attempt to control symptoms. - PT consulted to help get the patient moving again. - zofran for nausea - RIPE therapy - Contacted Berna at [facility] to coordinate outpatient treatment. 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 Anticipate discharge when outpatient medication coordination is complete. Addendum - Attending - Attending Attestation Date/Time: 03/20/18 0709 I personally evaluated the patient and discussed the management with Dr. Ruggiero. I agree with the History, Examination, Assessment and Plan documented above with any addition or exceptions noted below. Patient stable. 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 Will need DOT in the outpatient setting and will work to set that up.No surgery per NSGY.
[2018-03-20 09:02] LABS: #Eosinphils 0.4 thou/uL (0.0-0.7); #Lymphocytes 1.3 thou/uL (1.20-3.40); #Monocytes 0.7 thou/uL (0.11-0.59); #Neutrophils 4.6 thou/uL (1.40-6.50); %Basophils 0.3 % (0.0-1.0); %Eosinophils 6.2 % (0.0-10.0); %Lymphocytes 18.4 % (21.0-51.0); %Monocytes 9.9 % (0.0-10.0); %Neutrophils 65.2 % (42.0-75.0); Hemoglobin 14.6 g/dL (14.0-18.0); Mean Corpuscular HGB CONC 33.2 g/dL (32.0-36.0); Mean Corpuscular Hemoglobin 28.5 pg (27.0-31.0); Mean Corpuscular Volume 85.9 fL (78.0-98.0); Mean Platelet Volume 7.8 fL (7.4-10.4); Platelet Count 301 thou/uL (130-400); RBC Distribution Width 11.6 % (11.5-14.5); Red Blood Cell (RBC) Count 5.13 mill/uL (4.70-6.10)
[2018-03-20] MEDS: Pyrazinamide 500 MG TAB PO SCH (09:47)
[2018-03-20] MEDS: Rifampin 300 MG CAP PO SCH (09:48)
[2018-03-20] MEDS: Ethambutol HCl 400 MG TAB PO SCH (09:49)
[2018-03-20] MEDS: Docusate 100 MG CAP PO SCH ×2 (09:50→20:24)
[2018-03-20] MEDS: Cyclobenzaprine 10 MG TAB PO SCH ×3 (09:50→20:24)
[2018-03-20] MEDS: Enoxaparin Sodium 40 MG/0.4 ML SYRINGE SC SCH (20:23)
[2018-03-21] MEDS: HYDROcodone/Acetaminophen 5/325 mg Tablet PO PRN (02:53)
[2018-03-21] MEDS: Ibuprofen 800 MG TAB PO SCH ×3 (05:29→21:16)
[2018-03-21] MEDS: Isoniazid 100 MG TAB PO SCH (05:29)
[2018-03-21 06:45] LABS: #Basophils 0.1 thou/uL (0.0-0.2); #Eosinphils 0.6 thou/uL (0.0-0.7); #Lymphocytes 1.1 thou/uL (1.20-3.40); #Monocytes 0.7 thou/uL (0.11-0.59); #Neutrophils 4.1 thou/uL (1.40-6.50); %Eosinophils 8.5 % (0.0-10.0); %Lymphocytes 17.3 % (21.0-51.0); %Monocytes 10.8 % (0.0-10.0); %Neutrophils 62.5 % (42.0-75.0); Hemoglobin 14.5 g/dL (14.0-18.0); Mean Corpuscular HGB CONC 32.3 g/dL (32.0-36.0); Mean Corpuscular Hemoglobin 27.8 pg (27.0-31.0); Mean Platelet Volume 7.5 fL (7.4-10.4); Platelet Count 315 thou/uL (130-400); RBC Distribution Width 11.5 % (11.5-14.5); Red Blood Cell (RBC) Count 5.21 mill/uL (4.70-6.10); White Blood Cell (WBC) Count 6.5 thou/uL (4.8-10.8)
[2018-03-21] MEDS: Pyrazinamide 500 MG TAB PO SCH (09:04)
[2018-03-21] MEDS: Ethambutol HCl 400 MG TAB PO SCH (09:05)
[2018-03-21] MEDS: Docusate 100 MG CAP PO SCH ×2 (09:05→21:17)
[2018-03-21] MEDS: Rifampin 300 MG CAP PO SCH (09:05)
[2018-03-21] MEDS: Cyclobenzaprine 10 MG TAB PO SCH ×3 (09:06→21:16)
--- NOTE | 2018-03-21 10:03 | PDOC.FM ---
- Subjective Subjective: Patient did well overnight. He is in TLSO brace and reports he has some difficulty breathing when standing to go to bathroom. Also describing abdominal cramping and side pain which has been improving with flexeril. No CP, n/v. - Objective MAR Reviewed: Yes Vital Signs & Weight: Vital Signs (12 hours) Temp Pulse Resp BP Pulse Ox 03/21/18 07:38 98.4 F 78 20 124/83 99 03/21/18 04:10 97.6 F 81 16 125/84 98 Weight Weight 104.326 kg I&O: 03/20/18 03/21/18 03/22/18 06:59 06:59 06:59 Intake Total 1780 1950 Output Total 1900 3350 Balance -120 -1400 Result Diagrams: 03/21/18 06:35 03/15/18 19:15 Phys Exam - Physical Examination Constitutional: NAD Respiratory: no wheezing, clear to auscultation bilateral Cardiovascular: RRR, no significant murmur abd covered with TLSO Musculoskeletal: pulses present Neurological: normal sensation, moves all 4 limbs Psychiatric: normal affect, A&O x 3 Dx/Plan (1) Fractured spine Code(s): [id number] - Status: Acute Qualifiers: Thoracic vertebra fracture level: T7 (2) Other infective spondylopathies, thoracic region Code(s): M46.54 - OTHER INFECTIVE SPONDYLOPATHIES, THORACIC REGION Status: Acute (3) Irwin disease Status: Acute (4) Alcohol abuse Code(s): F10.10 - ALCOHOL ABUSE, UNCOMPLICATED Status: Chronic (5) Crack cocaine use Code(s): F14.90 - COCAINE USE, UNSPECIFIED, UNCOMPLICATED Status: Chronic - Plan Plan: #suspected Irwin disease -continue with quad RIPE abx therapy -ID and neurosurg consulted, recs greatly appreciated -will try to coordinate with health department -no surgery at this time per neurosurg -quant gold pending -increased flexeril to 10mg tid #cocaine and alcohol abuse Dispo: continue with current management, work on getting outpatient medication in the outpatient setting Addendum - Attending - Attending Attestation Date/Time: 03/21/18 8644 I personally evaluated the patient and discussed the management with Dr. Talamantes I agree with the History, Examination, Assessment and Plan documented above with any addition or exceptions noted below- Patient denies any complaints. Ambulating in room. Afebrile VSS. A/P: 1) T7-T8 osteomyelitis with paraspinal extension- possible Irwin disease versus other infection- Continue current abx as per ID. Neurologically intact- continue TLSO brace. Will need to have outpatient arrangements for therapy in place prior to discharge.
[2018-03-21] MEDS: Enoxaparin Sodium 40 MG/0.4 ML SYRINGE SC SCH (21:16)
[2018-03-22] MEDS: Isoniazid 100 MG TAB PO SCH (06:01)
[2018-03-22] MEDS: Ibuprofen 800 MG TAB PO SCH ×3 (06:01→21:58)
[2018-03-22] MEDS: HYDROcodone/Acetaminophen 5/325 mg Tablet PO PRN ×2 (06:04→10:21)
--- NOTE | 2018-03-22 06:22 | PDOC.FM ---
- Subjective Subjective: Pleasant 42 yo male seen at bedside this AM. Patient states he is still having a lot of trouble walking due to the cramping. He states he has to be slouched over for the cramps to improve, but with the brace that is not possible. Patient denies any fevers, chills, n/v/d, or other acute pains. Again he was asked about risk factors for TB. He has not been to [place] since 2000, he has never been homeless or lived in a homeless group home. 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 No other complaints today. - Objective Vital Signs & Weight: Vital Signs (12 hours) Temp Pulse Resp BP Pulse Ox 03/22/18 04:00 97.8 F 78 20 114/78 97 03/22/18 00:00 98.2 F 86 20 113/76 97 03/21/18 21:05 95 03/21/18 20:00 98.7 F 94 22 H 105/70 95 Weight Weight 104.326 kg I&O: 03/20/18 03/21/18 03/22/18 06:59 06:59 06:59 Intake Total 1780 1950 1200 Output Total 1900 3350 1500 Balance -120 -1400 -300 Result Diagrams: 03/22/18 06:07 03/15/18 19:15 Phys Exam - Physical Examination Constitutional: NAD Neck: no nodes, supple Respiratory: no wheezing, clear to auscultation bilateral Cardiovascular: RRR, no significant murmur Musculoskeletal: no edema, pulses present TLSO brace in place Neurological: non-focal, normal sensation, moves all 4 limbs Psychiatric: A&O x 3 Skin: no rash Dx/Plan (1) Irwin disease Status: Acute (2) Other infective spondylopathies, thoracic region Code(s): M46.54 - OTHER INFECTIVE SPONDYLOPATHIES, THORACIC REGION Status: Acute (3) Fractured spine Code(s): [id number] - Status: Acute Qualifiers: Thoracic vertebra fracture level: T7 (4) Alcohol abuse Code(s): F10.10 - ALCOHOL ABUSE, UNCOMPLICATED Status: Chronic (5) Crack cocaine use Code(s): F14.90 - COCAINE USE, UNSPECIFIED, UNCOMPLICATED Status: Chronic - Plan Plan: Irwin Disease - unknown pathogen at this time. DDx include TB. Continue precautions until quant gold results. - prelim biopsy results show no bacterial pathogen/acid fast pathogen. Cultures pending - Dr Estevez has been consulted and will treat like TB - Neuro surg has been consulted and TLSO brace has been placed. - Neursurgery has stated no surgery unless acute Neuro changes - Neuro symptoms are stable at this time. - [place], Tylenol, IBP for pain control. - Increase Flexeril to 10 mg TID scheduled to attempt to control symptoms. - PT consulted to help get the patient moving again. - zofran for nausea - RIPE therapy - Contacted Berna at [facility] to coordinate outpatient treatment. - Outpatient treatment will be available on 03/26 at earliest Alcohol abuse - counsellors on cessation, due to duration from last drink there is no concern for DT Cocaine abuse -UDS + for cocaine -Patient reports frequently smoking crack cocaine. 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 Anticipate discharge when outpatient medication coordination is complete. Addendum - Attending - Attending Attestation Date/Time: 03/22/18 1110 I personally evaluated the patient and discussed the management with Dr. Talamantes I agree with the History, Examination, Assessment and Plan documented above with any addition or exceptions noted below- Patient without complaints. Afebrile VSS. A/P: 1) T7-T8 osteomyelitis with paraspinal extension- continue current meds; cultures negative to date.
[2018-03-22 06:29] LABS: #Eosinphils 0.5 thou/uL (0.0-0.7); #Lymphocytes 1.3 thou/uL (1.20-3.40); #Monocytes 0.5 thou/uL (0.11-0.59); #Neutrophils 3.8 thou/uL (1.40-6.50); %Basophils 0.1 % (0.0-1.0); %Eosinophils 8.8 % (0.0-10.0); %Lymphocytes 20.6 % (21.0-51.0); %Monocytes 8.7 % (0.0-10.0); %Neutrophils 61.9 % (42.0-75.0); Hemoglobin 14.8 g/dL (14.0-18.0); Mean Corpuscular HGB CONC 33.7 g/dL (32.0-36.0); Mean Corpuscular Hemoglobin 28.9 pg (27.0-31.0); Mean Corpuscular Volume 85.9 fL (78.0-98.0); Mean Platelet Volume 7.8 fL (7.4-10.4); Platelet Count 322 thou/uL (130-400); RBC Distribution Width 11.6 % (11.5-14.5); Red Blood Cell (RBC) Count 5.12 mill/uL (4.70-6.10); White Blood Cell (WBC) Count 6.1 thou/uL (4.8-10.8)
[2018-03-22] MEDS: Cyclobenzaprine 10 MG TAB PO SCH ×3 (09:41→21:59)
[2018-03-22] MEDS: Docusate 100 MG CAP PO SCH ×2 (09:41→21:59)
[2018-03-22] MEDS: Ethambutol HCl 400 MG TAB PO SCH (09:42)
[2018-03-22] MEDS: Pyrazinamide 500 MG TAB PO SCH (09:43)
[2018-03-22] MEDS: Rifampin 300 MG CAP PO SCH (09:53)
[2018-03-22] MEDS: Enoxaparin Sodium 40 MG/0.4 ML SYRINGE SC SCH (21:58)
[2018-03-23 06:11] LABS: #Eosinphils 0.5 thou/uL (0.0-0.7); #Lymphocytes 1.2 thou/uL (1.20-3.40); #Monocytes 0.6 thou/uL (0.11-0.59); #Neutrophils 4.2 thou/uL (1.40-6.50); %Basophils 0.3 % (0.0-1.0); %Eosinophils 7.3 % (0.0-10.0); %Monocytes 8.8 % (0.0-10.0); %Neutrophils 64.7 % (42.0-75.0); Hemoglobin 14.8 g/dL (14.0-18.0); Mean Corpuscular HGB CONC 33.7 g/dL (32.0-36.0); Mean Corpuscular Hemoglobin 29.2 pg (27.0-31.0); Mean Corpuscular Volume 86.4 fL (78.0-98.0); Platelet Count 305 thou/uL (130-400); RBC Distribution Width 11.8 % (11.5-14.5); Red Blood Cell (RBC) Count 5.07 mill/uL (4.70-6.10); White Blood Cell (WBC) Count 6.5 thou/uL (4.8-10.8)
[2018-03-23] MEDS: Ibuprofen 800 MG TAB PO SCH ×3 (06:25→21:11)
[2018-03-23] MEDS: Isoniazid 100 MG TAB PO SCH (06:25)
--- NOTE | 2018-03-23 06:33 | PDOC.FM ---
- Subjective Subjective: 42 yo male seen at bedside this AM. Patient states that he was able to walk more yesterday. He states that his cramps are improving as well even though his medication makes him tired. He states that the brace is causing some soreness on his rib cage as well. Patient denied fevers, pain, n/v/d, abdominal pain, or cough. No other complaints today. - Objective Vital Signs & Weight: Vital Signs (12 hours) Temp Pulse Resp BP Pulse Ox 03/23/18 04:00 98 F 80 20 124/83 100 03/23/18 00:00 98.2 F 85 18 114/75 98 03/22/18 20:00 98.4 F 93 20 120/78 96 Weight Weight 104.326 kg I&O: 03/21/18 03/22/18 03/23/18 06:59 06:59 06:59 Intake Total 1950 2400 960 Output Total 3350 1700 925 Balance -1400 700 35 Result Diagrams: 03/23/18 05:40 03/15/18 19:15 Phys Exam - Physical Examination Constitutional: NAD HEENT: PERRLA, moist MMs Respiratory: no wheezing, clear to auscultation bilateral Cardiovascular: RRR, no significant murmur Musculoskeletal: no edema, pulses present Neurological: non-focal, moves all 4 limbs Lymphatic: no nodes Psychiatric: normal affect, A&O x 3 Skin: no rash, cap refill <2 seconds Dx/Plan (1) Irwin disease Status: Acute (2) Other infective spondylopathies, thoracic region Code(s): M46.54 - OTHER INFECTIVE SPONDYLOPATHIES, THORACIC REGION Status: Acute (3) Fractured spine Code(s): [id number] - Status: Acute Qualifiers: Thoracic vertebra fracture level: T7 (4) Alcohol abuse Code(s): F10.10 - ALCOHOL ABUSE, UNCOMPLICATED Status: Chronic (5) Crack cocaine use Code(s): F14.90 - COCAINE USE, UNSPECIFIED, UNCOMPLICATED Status: Chronic - Plan Plan: Irwin Disease - unknown pathogen at this time. DDx include TB. Continue precautions until quant gold results. - prelim biopsy results show no bacterial pathogen/acid fast pathogen. Acid Fast biopsy cultures pending - Sputum cultures negative for TB. - Dr Estevez has been consulted and will treat like TB - Neuro surg has been consulted and TLSO brace has been placed. - Neurosurgery has stated no surgery unless acute Neuro changes - Neuro symptoms are stable at this time. - [place], Tylenol, IBP for pain control. - Flexeril 10 mg TID scheduled to attempt to control symptoms. - PT consulted to help get the patient moving again. - zofran for nausea - RIPE therapy - [facility]. 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 Anticipate discharge when outpatient medication coordination is complete.
[2018-03-23] MEDS: Cyclobenzaprine 10 MG TAB PO SCH ×3 (08:52→20:40)
[2018-03-23] MEDS: Pyrazinamide 500 MG TAB PO SCH (08:53)
[2018-03-23] MEDS: Docusate 100 MG CAP PO SCH ×2 (08:53→20:40)
[2018-03-23] MEDS: Ethambutol HCl 400 MG TAB PO SCH (08:53)
[2018-03-23] MEDS: Rifampin 300 MG CAP PO SCH (10:10)
[2018-03-23] MEDS: HYDROcodone/Acetaminophen 5/325 mg Tablet PO PRN ×2 (10:15→17:45)
--- NOTE | 2018-03-23 11:31 | PRG ---
DATE OF SERVICE: 03/23/2018 SUBJECTIVE: Mr. 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 He is currently on ethambutol, isoniazid and rifampin. He is still having some back discomfort. He has also been followed by Dr. Estevez, and we have also contacted the [facility]. In the event, he is on therapy for this disease, and we will continue to follow with Dr. Estevez. Job ID: [id number]
[2018-03-23] MEDS: Enoxaparin Sodium 40 MG/0.4 ML SYRINGE SC SCH (20:40)
[2018-03-24 05:56] LABS: #Eosinphils 0.5 thou/uL (0.0-0.7); #Lymphocytes 1.2 thou/uL (1.20-3.40); #Monocytes 0.5 thou/uL (0.11-0.59); #Neutrophils 2.8 thou/uL (1.40-6.50); %Basophils 0.6 % (0.0-1.0); %Eosinophils 9.1 % (0.0-10.0); %Lymphocytes 24.6 % (21.0-51.0); %Monocytes 9.6 % (0.0-10.0); %Neutrophils 56.1 % (42.0-75.0); Mean Corpuscular HGB CONC 33.4 g/dL (32.0-36.0); Mean Corpuscular Volume 86.9 fL (78.0-98.0); Mean Platelet Volume 7.9 fL (7.4-10.4); Platelet Count 342 thou/uL (130-400); RBC Distribution Width 11.8 % (11.5-14.5); Red Blood Cell (RBC) Count 5.15 mill/uL (4.70-6.10)
--- NOTE | 2018-03-24 06:22 | PDOC.FM ---
- Subjective Subjective: 42 yo male seen at bedside this AM. Patient is continuing to be optimistic about his condition. Patient states that his cramping is improving and he is more mobile. He denies any new symptoms including SOB, chest pain, n/v/d, fevers , chills, or fevers. No other complaints. - Objective Vital Signs & Weight: Vital Signs (12 hours) Temp Pulse Resp BP Pulse Ox 03/24/18 04:30 97.9 F 81 20 121/86 98 03/24/18 00:28 97.7 F 87 20 112/74 99 03/23/18 20:31 98.2 F 90 20 122/82 97 03/23/18 20:00 97 Weight Weight 104.326 kg I&O: 03/22/18 03/23/18 03/24/18 06:59 06:59 06:59 Intake Total 2400 1920 1260 Output Total 1700 925 800 Balance 700 995 460 Result Diagrams: 03/24/18 04:54 03/15/18 19:15 Phys Exam - Physical Examination Constitutional: NAD HEENT: moist MMs Neck: supple, full ROM Respiratory: no wheezing, clear to auscultation bilateral Cardiovascular: RRR, no significant murmur Musculoskeletal: no edema, pulses present TLSO in place Neurological: non-focal, moves all 4 limbs "Numbness and heaviness to bilateral lower extremities" Psychiatric: normal affect, A&O x 3 Skin: no rash, cap refill <2 seconds Dx/Plan (1) Irwin disease Status: Acute (2) Other infective spondylopathies, thoracic region Code(s): M46.54 - OTHER INFECTIVE SPONDYLOPATHIES, THORACIC REGION Status: Acute (3) Fractured spine Code(s): [id number] - Status: Acute Qualifiers: Thoracic vertebra fracture level: T7 (4) Alcohol abuse Code(s): F10.10 - ALCOHOL ABUSE, UNCOMPLICATED Status: Chronic (5) Crack cocaine use Code(s): F14.90 - COCAINE USE, UNSPECIFIED, UNCOMPLICATED Status: Chronic - Plan Plan: Irwin Disease - unknown pathogen at this time. DDx include TB. Continue precautions until quant gold results. - prelim biopsy results show no bacterial pathogen/acid fast pathogen. Acid Fast biopsy cultures pending - Sputum cultures negative for TB. - Dr Estevez has been consulted and will treat like TB - Neuro surg has been consulted and TLSO brace has been placed. - Neuro symptoms are stable at this time. - [place], Tylenol, IBP, zofran for symptomatic treatment - Flexeril 10 mg TID scheduled to attempt to control symptoms. - Will add in Gabapentin as well to help to control symptoms further. - PT consulted to help get the patient moving again. - RIPE therapy - Contacted Berna at [facility] to coordinate outpatient treatment. - Outpatient treatment will be available on 03/26 at earliest Alcohol abuse - adolescent counselor on cessation, due to duration from last drink there is no concern for DT Cocaine abuse -UDS + for cocaine -Patient reports frequently smoking crack cocaine. 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 Anticipate discharge when outpatient medication coordination is complete.
[2018-03-24] MEDS: Isoniazid 100 MG TAB PO SCH (06:48)
[2018-03-24] MEDS: Ibuprofen 800 MG TAB PO SCH ×3 (06:48→22:02)
[2018-03-24] MEDS: Docusate 100 MG CAP PO SCH ×2 (09:14→22:21)
[2018-03-24] MEDS: Gabapentin 300 MG CAP PO SCH ×2 (09:14→22:02)
[2018-03-24] MEDS: Cyclobenzaprine 10 MG TAB PO SCH ×3 (09:14→22:02)
[2018-03-24] MEDS: Rifampin 300 MG CAP PO SCH (11:02)
[2018-03-24] MEDS: Pyrazinamide 500 MG TAB PO SCH (11:03)
[2018-03-24] MEDS: Ethambutol HCl 400 MG TAB PO SCH (11:03)
--- NOTE | 2018-03-24 11:53 | PRG ---
DATE OF SERVICE: 03/24/2018 SUBJECTIVE: Mr. Ross continues to feel improved. We are continuing with his anti-TB medications in anticipation of getting the QuantiFERON back in a day or two. We will continue to follow the lead of Dr. Estevez. Mr. Ross in the event that he feels much better and is having less discomfort in his back and legs. Job ID: [id number]
[2018-03-24] MEDS: Enoxaparin Sodium 40 MG/0.4 ML SYRINGE SC SCH (22:03)
[2018-03-25] MEDS: HYDROcodone/Acetaminophen 5/325 mg Tablet PO PRN (02:44)
[2018-03-25] MEDS: Isoniazid 100 MG TAB PO SCH (05:41)
[2018-03-25] MEDS: Ibuprofen 800 MG TAB PO SCH ×3 (05:41→21:02)
--- NOTE | 2018-03-25 06:24 | PDOC.FM ---
- Subjective Subjective: Pleasant 42 yo male seen at bedside this AM. Patient states that he has had increasing pain in his back and ribcage due to his brace. He states that his abdominal cramps are much improved. He states that when he wasn't in the brace, slouching provided relief. However, now he is not able to slouch due to the brace. Patient states that he doesn't have SOB, cough, fevers, or chills. No other complaints today. - Objective MAR Reviewed: Yes Vital Signs & Weight: Vital Signs (12 hours) Temp Pulse Resp BP Pulse Ox 03/25/18 04:00 98 F 81 20 115/79 99 03/24/18 23:51 97.4 F L 88 22 H 112/75 98 03/24/18 20:00 98.5 F 117 H 24 H 120/83 97 Weight Weight 104.326 kg I&O: 03/23/18 03/24/18 03/25/18 06:59 06:59 06:59 Intake Total 1920 1260 1960 Output Total 032 636 4050 Balance 995 460 -140 Result Diagrams: 03/24/18 04:54 03/15/18 19:15 Phys Exam - Physical Examination Constitutional: NAD HEENT: PERRLA, moist MMs Neck: no nodes Respiratory: no wheezing, clear to auscultation bilateral Cardiovascular: RRR, no significant murmur Musculoskeletal: no edema, pulses present Neurological: moves all 4 limbs Subjective Numbness or heaviness present Psychiatric: normal affect, A&O x 3 Skin: no rash, cap refill <2 seconds Dx/Plan (1) Irwin disease Status: Acute (2) Other infective spondylopathies, thoracic region Code(s): M46.54 - OTHER INFECTIVE SPONDYLOPATHIES, THORACIC REGION Status: Acute (3) Fractured spine Code(s): [id number] - Status: Acute Qualifiers: Thoracic vertebra fracture level: T7 (4) Alcohol abuse Code(s): F10.10 - ALCOHOL ABUSE, UNCOMPLICATED Status: Chronic (5) Crack cocaine use Code(s): F14.90 - COCAINE USE, UNSPECIFIED, UNCOMPLICATED Status: Chronic - Plan Plan: Irwin Disease - unknown pathogen at this time. DDx include TB. - Quant Gold POSITIVE 03/25 - prelim biopsy results show no bacterial pathogen/acid fast pathogen. Acid Fast biopsy cultures pending - Sputum cultures negative for TB. - Dr Estevez has been consulted and will treat like TB - Neuro surg has been consulted and TLSO brace has been placed. - Neuro symptoms are stable at this time. - [place], Tylenol, IBP, zofran for symptomatic treatment - Flexeril 10 mg TID scheduled to attempt to control symptoms. - Will add in Gabapentin as well to help to control symptoms further. - PT consulted to help get the patient moving again. - RIPE therapy - Contacted Berna [facility] to coordinate outpatient treatment. - Outpatient treatment will be available on 03/26 at earliest Alcohol abuse - admissions counselor on cessation, due to duration from last drink there is no concern for DT Cocaine abuse -UDS + for cocaine -Patient reports frequently smoking crack cocaine. 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 Anticipate discharge when outpatient medication coordination is complete.
--- NOTE | 2018-03-25 06:53 | PDOC.EVN ---
Event Note - Event Note Event Note: Transition of Care note 03/25/18 Admission date 03/16/18 42 yo M presents for mid back pain and LUQ abdominal pain that started 2 months ago after lifting tiles, described as sharp and burning that radiates around the left side to his back. He also has RUQ pain that started 2 weeks ago that does not radiate. Both pains are worse with movement. He also has numbness bilaterally that starts at his midchest and goes down to his feet. Ascribes weakness in both legs. He denies urinary or bowel incontinence. He also has SOB and occasonal nausea, denies night sweats. In the ED, CT showed T7-T8 pathologic fractures and a L paravertebral 3x5 cm mass. He was given flexeril, IBP, and 1L of LR. Neurosurgery, Dr. Cruz, was consulted. Neurosurgery recommended against surgery and placed TLSO brace. Patient had a biopsy completed with pathology that did not definitely rule in or out TB. Biopsy showed Granulomatous reaction with focal necrosis. It was negative for fungal or acid fast stains. It was also negative for malignancy. He had further workup that was negative for TB such as respiratory complaints, negative CXR, and negative sputum cultures. Quantiferon Gold testing returned POSITIVE on 03/25. Acid fast bacilli cultures are still pending at this time. Dr. Estevez was consulted and he recommended treatment for Irwin Disease. Patient was initiated on RIPE therapy. [facility] [phone] has been contacted and will have outpatient medications available on 03/26 at earliest. I contacted [facility] on 03/25 and it stated that it was closed. Plan for the primary team has been symptom control due to this being a more ID and Neurosurgical case. Flexeril and gabapentin has seemed to improve his abdominal cramps/pains and he has become more mobile. PT was consulted to help patient be more successful on discharge. Patient has no insurance and so rehab placement is basically not a possibility. Patient is very pleasant and understanding. I anticipate discharge when outpatient medication regimen has been set up for him. Please contact with any questions or concerns.
[2018-03-25] MEDS: Rifampin 300 MG CAP PO SCH (09:12)
[2018-03-25] MEDS: Ethambutol HCl 400 MG TAB PO SCH (09:12)
[2018-03-25] MEDS: Pyrazinamide 500 MG TAB PO SCH (09:13)
[2018-03-25] MEDS: Gabapentin 300 MG CAP PO SCH ×2 (09:13→21:01)
[2018-03-25] MEDS: Cyclobenzaprine 10 MG TAB PO SCH ×3 (09:13→21:02)
[2018-03-25] MEDS: Docusate 100 MG CAP PO SCH ×2 (09:14→21:02)
--- NOTE | 2018-03-25 16:04 | PRG ---
DATE OF SERVICE: SUBJECTIVE: Mr. Ross is still having some back discomfort, but overall improved. His QuantiFERON gold did come back positive for tuberculosis, which is not surprising. We will continue with his therapy in anticipation of discharge in a few days. Job ID: [id number]
[2018-03-25] MEDS: Enoxaparin Sodium 40 MG/0.4 ML SYRINGE SC SCH (21:02)
--- NOTE | 2018-03-25 22:55 | PRG ---
DATE OF SERVICE: 03/25/2018 SUBJECTIVE: Feeling better, less pain in the back, still with good strength in lower extremities. He is able to void without difficulty. Having bowel movements as well. No respiratory symptoms. No abdominal pain. OBJECTIVE: VITAL SIGNS: Normal. LUNGS: Clear. HEART: S1 and S2, regular rate. ABDOMEN: Soft. EXTREMITIES: Moves well lower extremities, good sensation. NEUROLOGIC: Cognitive function intact. LABORATORY DATA: White cell count 5.0, hemoglobin 15, platelets 342. QuantiFERON was positive. 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 Continue 4-drug regimen for management of this infection. Eventual discharge planning with followup by health department. Total duration of therapy around 9 months. Job ID: [id number] MTDD
[2018-03-26] MEDS: Ibuprofen 800 MG TAB PO SCH ×2 (05:13→15:38)
[2018-03-26] MEDS: Isoniazid 100 MG TAB PO SCH (05:13)
--- NOTE | 2018-03-26 05:49 | PDOC.FM ---
- Subjective Subjective: No acute events overnight. No back, no problems with urinating, defecation. Able to ambulate. Has BLSO brace on. Denies fevers, cough. - Objective MAR Reviewed: Yes Vital Signs & Weight: Vital Signs (12 hours) Temp Pulse Resp BP BP Pulse Ox 03/26/18 04:00 97.4 F L 88 20 111/74 98 03/26/18 00:00 98.4 F 81 20 116/75 97 03/25/18 20:35 97 03/25/18 20:00 98.4 F 105 H 20 121/83 97 Weight Weight 104.326 kg I&O: 03/24/18 03/25/18 03/26/18 06:59 06:59 06:59 Intake Total 1260 1960 3000 Output Total 800 3100 2400 Balance 460 -1140 600 Result Diagrams: 03/24/18 04:54 03/15/18 19:15 Phys Exam - Physical Examination Constitutional: NAD BLSO brace on, exam limited HEENT: PERRLA, moist MMs Respiratory: no wheezing, no rales, no rhonchi, clear to auscultation bilateral Cardiovascular: RRR, no significant murmur Neurological: moves all 4 limbs Psychiatric: normal affect, A&O x 3 Skin: no rash, normal turgor Dx/Plan (1) Fractured spine Code(s): [id number] - Status: Acute Qualifiers: Thoracic vertebra fracture level: T7 (2) Irwin disease Status: Acute (3) Alcohol abuse Code(s): F10.10 - ALCOHOL ABUSE, UNCOMPLICATED Status: Chronic (4) Crack cocaine use Code(s): F14.90 - COCAINE USE, UNSPECIFIED, UNCOMPLICATED Status: Chronic (5) Other infective spondylopathies, thoracic region Code(s): M46.54 - OTHER INFECTIVE SPONDYLOPATHIES, THORACIC REGION Status: Acute - Plan Plan: 42 yo M with pathologic fracture of T7-8 related to 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 Estevez - Blood cx have been negative - Neuro surg has been consulted and TLSO brace has been placed, no other interventions at this time - [place], Tylenol, IBP, zofran Flexeril 10 mg TID, gabapentin BID for sxatic treatment. - PT consulted for re-conditioning - [facility]ed [facility] to coordinate outpatient treatment. - Outpatient treatment will be available on 03/26 at earliest Alcohol abuse - phone counselor on cessation - last drink >5 days ago, no concern for DTs Cocaine abuse -UDS + for cocaine -Patient reports frequently smoking crack cocaine -Counseled on cessation DVT ppx: Lovenox Disposition: Stable, continue RIPE, Dr. Estevez recs. Will f/u to ensure can get outpatient TB medications. Dispo pending TB meds. Discussed with Dr. Xiong Addendum - Attending - Attending Attestation Date/Time: 03/26/18 [id number] I personally evaluated the patient and discussed the management with Dr. Bernard I agree with the History, Examination, Assessment and Plan documented above with any addition or exceptions noted below - Patient without complaints. Afebrile VSS. A/P: 1) T7-T8 posteomyelitis with paraspinal extension- arrangements made for outpatient treatment through [facility]. Continue TLSO.
[2018-03-26] MEDS: Cyclobenzaprine 10 MG TAB PO SCH ×2 (09:46→15:38)
[2018-03-26] MEDS: Ethambutol HCl 400 MG TAB PO SCH (09:46)
[2018-03-26] MEDS: Gabapentin 300 MG CAP PO SCH (09:46)
[2018-03-26] MEDS: Pyrazinamide 500 MG TAB PO SCH (09:47)
[2018-03-26] MEDS: Rifampin 300 MG CAP PO SCH (09:47)
[2018-03-26] MEDS: Docusate 100 MG CAP PO SCH (09:48)
[2018-03-26 16:30] VITALS: BP 139/81; TEMP 98.5
--- NOTE | 2018-03-27 08:48 | DIS ---
DATE OF ADMISSION: 03/16/2018 DATE OF DISCHARGE: 03/26/2018 RESIDENT: Digna Bernard MD, PGY-1 ADMITTING ATTENDING: Marcelino Rae MD DISCHARGE ATTENDING: Bernadette Xiong MD CONSULTS: 1. Dr. Estevez. 2. Dr. Cruz, Neurosurgery. 3. Pulmonology, Dr. Costa. PROCEDURES: 1. CT-guided biopsy of spine: Bacterial culture biopsy negative. 2. Acid-fast bacilli culture pending. 3. Acid-fast bacilli smear negative. 4. Respiratory culture negative. PRIMARY DIAGNOSES: 1. 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 Pathologic fractures of T7-T8 requiring TLSO brace 3. DISCHARGE MEDICATIONS: 1. Isoniazid 300 mg p.o. daily. 2. Pyrazinamide 2000 mg p.o. daily. 3. Rifampin 600 mg p.o. daily. 4. Ethambutol 1600 mg p.o. daily. 5. Gabapentin 300 mg p.o. b.i.d. p.r.n. for pain. 6. Motrin 800 mg q.8 hours for pain or fever. 7. Tylenol Regular Strength 650 mg p.o. q.4 hours p.r.n. 8. Colace 100 mg p.o. b.i.d. p.r.n. constipation. Discontinued medications: None. HISTORY OF PRESENT ILLNESS/HOSPITAL COURSE: 42 yo M presents for mid back pain and LUQ abdominal pain that started 2 months ago after lifting tiles, described as sharp and burning that radiates around the left side to his back. He also has RUQ pain that started 2 weeks ago that does not radiate. Both pains are worse with movement. He also has numbness bilaterally that starts at his midchest and goes down to his feet. Ascribes weakness in both legs. He denies urinary or bowel incontinence. He also has SOB and occasonal nausea, denies night sweats. In the ED, CT showed T7-T8 pathologic fractures and a L paravertebral 3x5 cm mass. He was given flexeril, IBP, and 1L of LR. Neurosurgery, Dr. Cruz, was consulted. Neurosurgery recommended against surgery and placed TLSO brace. Patient had a biopsy completed with pathology that did not definitely rule in or out TB. Biopsy showed Granulomatous reaction with focal necrosis. It was negative for fungal or acid fast stains. It was also negative for malignancy. He had further workup that was negative for TB such as respiratory complaints, negative CXR, and negative sputum cultures. Quantiferon Gold testing returned POSITIVE on 03/25. Acid fast bacilli cultures are still pending at this time. Dr. Estevez was consulted and he recommended treatment for Irwin Disease. Patient was initiated on RIPE therapy. Berna at the [facility] [phone] has been contacted and will have outpatient medications available on 03/26 at earliest. I contacted [facility] on 03/25 and it stated that it was closed. Plan for the primary team has been symptom control due to this being a more ID and Neurosurgical case. Flexeril and gabapentin has seemed to improve his abdominal cramps/pains and he has become more mobile. PT was consulted to help patient be more successful on discharge. Patient has no insurance and so rehab placement is basically not a possibility. Patient is very pleasant and understanding. I anticipate discharge when outpatient medication regimen has been set up for him. After discussing with Dorys gonzalez at the [facility], arrangements were made for the patient to receive continued outpatient care in regard to his TB medications. He was made aware that the [facility] worker would be visiting his home daily to provide him with appropriate medications in addition to any further testing that needs to be done. The patient was advised to follow up with Dr. Estevez in regard to his RIPE therapy. In addition, the patient was also advised to follow up with Neurosurgery and to continue wearing TLSO brace for the next 6 months as directed. DISPOSITION: Stable. DISCHARGE INSTRUCTIONS: 1. Location: Home. 2. Diet: Heart healthy. 3. Activity: Ad kelvin with moderate bedrest. 4. Followup: Please follow up with Dr. Estevez. Also, follow up with Dr. Cruz from Neurosurgery. Please also follow up at [facility] within the next week. Job ID: [id number] MTDD
== END 2018-03-26 15:45 | disposition home or self-care (01) | DRG 478 ==
LOC: ERS 18:48 → SURG A 03-16 00:17 → SURG B 03-17 00:25
PROVIDERS: ADMIT Student in an Organized Health Care Education/Training Program; ATTEND Student in an Organized Health Care Education/Training Program
PROC: 0PB43ZX Excision of Thoracic Vertebra, Percutaneous Approach, Diagnostic (ICD-10-PCS; principal; 2018-03-17)
DX: M46.54 Other infective spondylopathies, thoracic region (principal); M84.48XA Pathological fracture, other site, initial encounter for fracture; A18.01 Tuberculosis of spine; M46.24 Osteomyelitis of vertebra, thoracic region; R22.2 Localized swelling, mass and lump, trunk; F17.210 Nicotine dependence, cigarettes, uncomplicated; F10.10 Alcohol abuse, uncomplicated; F14.10 Cocaine abuse, uncomplicated; Z83.3 Family history of diabetes mellitus; Z82.49 Family history of ischemic heart disease and other diseases of the circulatory system
CPT/HCPCS: 20225; 36415; 71260; 72128; 72131; 72156; 72157; 72158; 74177; 77012; 80053; 80306; 80307; 81003; 83690; 84165; 84484; 85025; 85610; 85730; 86480; 87040; 87070; 87102; 87116; 87205; 87206; 87389; 88112; 88305; 88312; 88333; 88334; 89220; 90471; 90686; 93005; 93306; 96360; 96361; G0008; G8978-GP-CL; G8979-GP-CI; J1650; J2250; J3010; L0639; Q9967

== ENCOUNTER 2018-05-04 11:06 | Outpatient (CLI) | payer OTHER ==
--- NOTE | 2018-05-04 12:19 | RAD ---
THORACIC SPINE SERIES THREE VIEWS: History: Back pain. History of fracture. FINDINGS: The compression changes of the T7 vertebral body appear slightly more pronounced than on the prior MR I study. The height of T8 appears fairly well preserved. The remainder of the vertebral bodies are un remarkable. IMPRESSION: Compression changes of the T7 vertebral body appear slightly more pronounced than noted on the previo us MRI study. The T8 vertebral body maintains fairly normal height. POS: TPC
== END 2018-05-04 11:07 | disposition home or self-care (01) ==
LOC: BICRAD 11:06
PROVIDERS: ATTEND Surgery
DX: A18.01 Tuberculosis of spine (principal); M54.6 Pain in thoracic spine
CPT/HCPCS: 72070

== ENCOUNTER 2018-06-29 08:21 | Outpatient (CLI) | payer OTHER ==
--- NOTE | 2018-06-29 10:34 | RAD ---
FThoracic spine: 3 views INDICATIONS: back pain. Follow-up vertebral body compression. COMPARISON: Thoracic film 05/04/2018 FINDINGS: Severe compression deformity of the T7 vertebra again noted. This is unchanged when compare d prior exam. Mild wedging at T8 is stable. The other thoracic vertebra continue to maintain normal h eight and alignment with no interval change. IMPRESSION: Thoracic spine findings are stable when compared to 05/04/2018
== END 2018-06-29 08:22 | disposition home or self-care (01) ==
LOC: BICRAD 08:21
PROVIDERS: ATTEND Surgery
DX: M54.6 Pain in thoracic spine (principal)
CPT/HCPCS: 72072

== ENCOUNTER 2023-04-17 15:12 | Inpatient (IN) | payer SELFPAY ==
[2023-04-17] MEDS ORDERED: Ondansetron PF 4 MG/2 ML Vial ONE (16:47)
[2023-04-17] MEDS ORDERED: PROPOFOL 40 ML ONE (16:47)
[2023-04-17] MEDS ORDERED: Lidocaine 1% PF 5 ML VIAL ONE (16:47)
[2023-04-17] MEDS ORDERED: Dexamethasone 4 mg/ml Vial ONE (16:47)
[2023-04-17 17:48] LABS: #Monocytes 0.7 thou/uL (0.11-0.59); #Neutrophils 7.1 thou/uL (1.40-6.50); %Basophils 0.3 % (0.0-1.0); %Eosinophils 0.4 % (0.0-10.0); %Lymphocytes 27.4 % (21.0-51.0); %Monocytes 6.2 % (0.0-10.0); %Neutrophils 65.4 % (42.0-75.0); Hematocrit 43.9 % (42.0-52.0); Hemoglobin 15.6 g/dL (14.0-18.0); Mean Corpuscular HGB CONC 35.5 g/dL (32.0-36.0); Mean Corpuscular Hemoglobin 30.5 pg (27.0-31.0); Mean Corpuscular Volume 85.9 fl (78.0-98.0); Mean Platelet Volume 9.9 fL (7.4-10.4); Platelet Count 341 10x3/uL (130-400); RBC Distribution Width 11.8 % (11.5-14.5); Red Blood Cell (RBC) Count 5.11 mill/uL (4.70-6.10); White Blood Cell (WBC) Count 10.9 10x3/uL (4.8-10.8)
[2023-04-17] MEDS ORDERED: CEFAZOLIN 2 GM VIAL ONE (17:53)
[2023-04-17] MEDS ORDERED: Sodium Chloride 0.9% 100 ML ONE (17:54)
[2023-04-17 18:06] LABS: ALT (SGPT) 28 U/L (8-55); AST (SGOT) 52 U/L (5-34); Alkaline Phosphatase 86 U/L (40-110); Anion Gap 17 mmol/L (10-20); BUN (Urea Nitrogen) 9 mg/dL (8.9-20.6); Bilirubin, Total 0.5 mg/dL (0.2-1.2); CRP (Inflammatory) 1.25 mg/dL (= or < 0.5); Calc. Creatinine Clearance 0 mL/min (70-130); Calcium 9.7 mg/dL (7.8-10.44); Carbon Dioxide 22 mmol/L (22-29); Chloride 101 mmol/L (98-107); Estimated GFR 108; Globulin 4.4 g/dL (2.4-3.5); Glucose 66 mg/dL (70-105); Potassium 3.9 mmol/L (3.5-5.1); Protein, Total 8.4 g/dL (6.0-8.3); Sodium 136 mmol/L (136-145)
[2023-04-17] MEDS ORDERED: fentaNYL 50 mcg/mL 1 mL Vial ONE ×4 (18:09→21:24)
[2023-04-17] MEDS ORDERED: SUCCINYLCHOLINE/SOD CL,ISO/PF 200 MG/10 ML SYRINGE FS ONE (18:10)
[2023-04-17] MEDS ORDERED: Midazolam HCl 2 mg/2 ml Vial ONE (18:23)
[2023-04-17] MEDS ORDERED: Bacitracin Zinc Ointment 30 gm TUBE ONE (18:25)
[2023-04-17] MEDS ORDERED: Bupivacaine PF 0.5% 30 ML VIAL ONE (18:25)
[2023-04-17] MEDS ORDERED: PACU-Morphine 4MG/ML VIAL SLOW IVP PRN (19:34)
[2023-04-17] MEDS ORDERED: Promethazine HCl 25 MG/ML VIAL IM PRN ×2 (19:34→19:58)
[2023-04-17] MEDS ORDERED: HYDROmorphone 2 MG/ML VIAL SLOW IVP PRN (19:34)
[2023-04-17] MEDS ORDERED: Ondansetron HCl/PF 4 MG/2 ML Vial IVP PRN (19:34)
[2023-04-17] MEDS ORDERED: Morphine Sulfate 2 MG/ML SYRINGE SLOW IVP PRN (19:34)
[2023-04-17] MEDS ORDERED: Ketorolac Tromethamine 30 MG (1 mL) VIAL ONE (19:35)
[2023-04-17] MEDS ORDERED: fentaNYL 50 mcg/mL 1 mL Vial SLOW IVP PRN (19:58)
[2023-04-17] MEDS ORDERED: Ondansetron PF 4 MG/2 ML Vial IVP PRN (19:58)
[2023-04-17] MEDS ORDERED: Milk Of Magnesia 30 ML UDCUP PO PRN (19:58)
[2023-04-17] MEDS ORDERED: Bisacodyl 10 MG SUPP PR PRN (19:58)
[2023-04-17] MEDS ORDERED: Communication Order-Pharmacy FS SCH (20:00)
[2023-04-17] MEDS ORDERED: Meperidine HCl/PF 25 MG (1 mL) VIAL IM PRN (20:04)
[2023-04-17] MEDS ORDERED: Morphine 4 MG/ML VIAL ONE (20:56)
[2023-04-17 21:54] VITALS: BMI 33.0
[2023-04-17] MEDS: HYDROcodone/Acetaminophen 5/325 mg Tablet PO PRN (21:54)
[2023-04-17] MEDS: Aspirin 81 mg Enteric Coated Tablet PO SCH (21:54)
[2023-04-17] MEDS: Ketorolac Tromethamine 30 MG (1 mL) VIAL IVP PRN (21:54)
[2023-04-17] MEDS: Vancomycin (BATCH) 1.75 GM in Premix 1 BAG IVPB SCH (22:22)
[2023-04-17] MEDS: Gentamicin 80 MG/2 ML VIAL IM SCH (22:23)
[2023-04-17] MEDS ORDERED: Dextrose 5% in Water 1,000 ML IV PRN (23:11)
[2023-04-17] MEDS ORDERED: Dextrose 50% Abboject 50 ML SYRINGE SLOW IVP PRN (23:11)
[2023-04-17] MEDS ORDERED: Glucagon 1 MG/ML KIT IM PRN (23:11)
[2023-04-18] MEDS: Acetaminophen/Codeine 30-300mg Tablet PO PRN (03:45)
[2023-04-18 05:07] LABS: #Monocytes 0.1 thou/uL (0.11-0.59); #Neutrophils 8.2 thou/uL (1.40-6.50); %Basophils 0.1 % (0.0-1.0); %Lymphocytes 8.5 % (21.0-51.0); %Monocytes 1.5 % (0.0-10.0); %Neutrophils 89.6 % (42.0-75.0); Hematocrit 46.2 % (42.0-52.0); Hemoglobin 16.4 g/dL (14.0-18.0); Mean Corpuscular HGB CONC 35.5 g/dL (32.0-36.0); Mean Corpuscular Hemoglobin 30.5 pg (27.0-31.0); Mean Corpuscular Volume 85.9 fl (78.0-98.0); Mean Platelet Volume 10.2 fL (7.4-10.4); Platelet Count 343 10x3/uL (130-400); RBC Distribution Width 11.7 % (11.5-14.5); Red Blood Cell (RBC) Count 5.38 mill/uL (4.70-6.10); White Blood Cell (WBC) Count 9.2 10x3/uL (4.8-10.8)
[2023-04-18] MEDS: Vancomycin (BATCH) 1.25 GM in Premix 1 BAG IVPB SCH (05:45)
[2023-04-18] MEDS: HumaLOG 300 UNITS/3 ML VIAL SC PRN (06:15)
[2023-04-18] MEDS: TETANUS, DIPHTHERIA TOX,ADULT (TDVAX) 0.5 ML VIAL IM ONE (07:18)
[2023-04-18] MEDS: Amlodipine 10 MG TAB PO SCH (08:25)
[2023-04-18] MEDS: metFORMIN 500 MG TAB PO SCH (08:25)
[2023-04-18] MEDS: Lisinopril 10 MG TAB PO SCH (08:25)
[2023-04-18] MEDS: glipiZIDE 5 MG TAB PO SCH (08:25)
[2023-04-18] MEDS: Ketorolac Tromethamine 30 MG (1 mL) VIAL IVP SCH (16:31)
[2023-04-18 21:27] LABS: Vancomycin, Trough 13.7 ug/mL
[2023-04-18] MEDS: Insulin Glargine 30 UNITS/0.3 ML VIAL SC SCH (21:49)
[2023-04-18] MEDS: Gentamicin Sulfate 80 MG in Premix 1 BAG IVPB SCH (22:07)
[2023-04-19] MEDS: traMADol HCl 50 MG TAB PO PRN (09:03)
[2023-04-19 09:14] LABS: #Eosinphils 0.1 thou/uL (0.0-0.7); #Monocytes 0.7 thou/uL (0.11-0.59); #Neutrophils 6.9 thou/uL (1.40-6.50); %Basophils 0.2 % (0.0-1.0); %Eosinophils 0.8 % (0.0-10.0); %Lymphocytes 22.7 % (21.0-51.0); %Monocytes 7.1 % (0.0-10.0); %Neutrophils 68.9 % (42.0-75.0); Hematocrit 42.7 % (42.0-52.0); Hemoglobin 15.3 g/dL (14.0-18.0); Mean Corpuscular HGB CONC 35.8 g/dL (32.0-36.0); Mean Corpuscular Hemoglobin 31.1 pg (27.0-31.0); Mean Corpuscular Volume 86.8 fl (78.0-98.0); Mean Platelet Volume 10.9 fL (7.4-10.4); Platelet Count 313 10x3/uL (130-400); RBC Distribution Width 11.8 % (11.5-14.5); Red Blood Cell (RBC) Count 4.92 mill/uL (4.70-6.10)
[2023-04-19 09:31] LABS: Anion Gap 14 mmol/L (10-20); BUN (Urea Nitrogen) 13 mg/dL (8.9-20.6); Calc. Creatinine Clearance 146 mL/min (70-130); Calcium 8.6 mg/dL (7.8-10.44); Carbon Dioxide 25 mmol/L (22-29); Chloride 105 mmol/L (98-107); Estimated GFR 109; Glucose 128 mg/dL (70-105); Sodium 140 mmol/L (136-145)
[2023-04-19 21:55] LABS: Vancomycin, Trough 22.6 ug/mL
[2023-04-20 08:29] LABS: Vancomycin, Trough 49.1 ug/mL
[2023-04-20] MEDS: FLU VACC QS2023-24(6MOS UP)/PF 60 MCG/0.5 ML SYRINGE IM ONE (10:05)
[2023-04-20] MEDS ORDERED: Vancomycin (BATCH) 1.25 GM in Premix 1 BAG IVPB SCH (10:30)
[2023-04-20 16:10] LABS: Vancomycin, Trough 14.5 ug/mL
[2023-04-20] MEDS: Vancomycin (BATCH) 1.25 GM in Premix 1 BAG IVPB SCH (17:31)
[2023-04-21] MEDS: Vancomycin (BATCH) 1.25 GM in Premix 1 BAG IVPB SCH (00:30)
[2023-04-21] MEDS: Ampicillin/Sulbactam 3 GM in Sodium Chloride 0.9% 100 ML IVPB SCH (12:48)
[2023-04-21] MEDS ORDERED: Bacitracin Zinc Ointment 30 gm TUBE ONE (14:28)
[2023-04-21] MEDS ORDERED: Ondansetron PF 4 MG/2 ML Vial ONE (14:53)
[2023-04-21] MEDS ORDERED: PROPOFOL 20 ML ONE (14:53)
[2023-04-21] MEDS ORDERED: fentaNYL PF 100 MCG/2 ML SYRINGE ONE (14:53)
[2023-04-21] MEDS ORDERED: Lidocaine 2% PF 5 ML VIAL ONE (14:53)
[2023-04-21] MEDS ORDERED: Ketorolac Tromethamine 30 MG (1 mL) VIAL ONE (14:53)
[2023-04-21] MEDS ORDERED: PHENYLEPHRINE-NS 100 MCG/ML 10 ML SYRINGE ONE (15:20)
[2023-04-21] MEDS ORDERED: Metoclopramide HCl 10 MG (2 mL) VIAL ONE (15:27)
[2023-04-21] MEDS ORDERED: fentaNYL 50 mcg/mL 1 mL Vial ONE ×5 (15:28→17:01)
[2023-04-21] MEDS ORDERED: Promethazine HCl 25 MG/ML VIAL IM PRN (15:33)
[2023-04-21] MEDS ORDERED: Ondansetron HCl/PF 4 MG/2 ML Vial IVP PRN (15:33)
[2023-04-21] MEDS ORDERED: Meperidine HCl/PF 25 MG/ML VIAL SLOW IVP PRN (15:33)
[2023-04-21] MEDS: HumaLOG 300 UNITS/3 ML VIAL SC PRN (22:01)
[2023-04-22 04:49] LABS: #Eosinphils 0.2 thou/uL (0.0-0.7); #Monocytes 0.8 thou/uL (0.11-0.59); #Neutrophils 6.8 thou/uL (1.40-6.50); %Basophils 0.2 % (0.0-1.0); %Eosinophils 1.7 % (0.0-10.0); %Lymphocytes 18.8 % (21.0-51.0); %Monocytes 8.6 % (0.0-10.0); %Neutrophils 70.4 % (42.0-75.0); Hematocrit 41.7 % (42.0-52.0); Hemoglobin 14.8 g/dL (14.0-18.0); Mean Corpuscular HGB CONC 35.5 g/dL (32.0-36.0); Mean Corpuscular Volume 84.4 fl (78.0-98.0); Mean Platelet Volume 10.3 fL (7.4-10.4); Platelet Count 275 10x3/uL (130-400); RBC Distribution Width 11.6 % (11.5-14.5); Red Blood Cell (RBC) Count 4.94 mill/uL (4.70-6.10); White Blood Cell (WBC) Count 9.7 10x3/uL (4.8-10.8)
[2023-04-22 05:26] LABS: ALT (SGPT) 23 U/L (8-55); AST (SGOT) 31 U/L (5-34); Albumin 3.6 g/dL (3.5-5.0); Alkaline Phosphatase 84 U/L (40-110); BUN (Urea Nitrogen) 15 mg/dL (8.9-20.6); Bilirubin, Total 0.4 mg/dL (0.2-1.2); Calc. Creatinine Clearance 132 mL/min (70-130); Calcium 9.2 mg/dL (7.8-10.44); Carbon Dioxide 27 mmol/L (22-29); Chloride 101 mmol/L (98-107); Estimated GFR 105; Globulin 3.5 g/dL (2.4-3.5); Glucose 124 mg/dL (70-105); Potassium 3.8 mmol/L (3.5-5.1); Protein, Total 7.1 g/dL (6.0-8.3); Sodium 136 mmol/L (136-145)
[2023-04-22 05:34] LABS: Anion Gap 14 mmol/L (10-20)
[2023-04-22 17:05] LABS: #Eosinphils 0.2 thou/uL (0.0-0.7); #Monocytes 0.8 thou/uL (0.11-0.59); #Neutrophils 7.3 thou/uL (1.40-6.50); %Basophils 0.2 % (0.0-1.0); %Eosinophils 1.6 % (0.0-10.0); %Monocytes 8.4 % (0.0-10.0); %Neutrophils 74.4 % (42.0-75.0); Hematocrit 39.7 % (42.0-52.0); Hemoglobin 14.1 g/dL (14.0-18.0); Mean Corpuscular HGB CONC 35.5 g/dL (32.0-36.0); Mean Corpuscular Hemoglobin 30.5 pg (27.0-31.0); Mean Corpuscular Volume 85.7 fl (78.0-98.0); Mean Platelet Volume 10.9 fL (7.4-10.4); Platelet Count 268 10x3/uL (130-400); RBC Distribution Width 11.7 % (11.5-14.5); Red Blood Cell (RBC) Count 4.63 mill/uL (4.70-6.10); White Blood Cell (WBC) Count 9.9 10x3/uL (4.8-10.8)
[2023-04-22 17:37] LABS: ALT (SGPT) 21 U/L (8-55); AST (SGOT) 25 U/L (5-34); Albumin 3.7 g/dL (3.5-5.0); Alkaline Phosphatase 80 U/L (40-110); Amylase 96 U/L (25-125); Bilirubin, Direct 0.2 mg/dL (0.1-0.3); Bilirubin, Total 0.3 mg/dL (0.2-1.2); Lipase 37 U/L (8-78); Protein, Total 7.2 g/dL (6.0-8.3)
[2023-04-23] MEDS: Morphine 4 MG/ML VIAL SLOW IVP PRN (16:16)
[2023-04-24] MEDS ORDERED: Vancomycin 1 GM VIAL ONE (15:51)
[2023-04-24] MEDS ORDERED: Bacitracin Zinc Ointment 30 gm TUBE ONE (15:51)
[2023-04-24] MEDS ORDERED: Thrombin 5000 UNITS/5 ML VIAL ONE (15:51)
[2023-04-24] MEDS ORDERED: Bupivacaine PF 0.5% 30 ML VIAL ONE (15:52)
[2023-04-24] MEDS ORDERED: PROPOFOL 20 ML ONE (17:38)
[2023-04-24] MEDS ORDERED: Sevoflurane 250 ML INH ANEST BOTTLE ONE (17:38)
[2023-04-24] MEDS ORDERED: fentaNYL PF 100 MCG/2 ML SYRINGE ONE (17:38)
[2023-04-24] MEDS ORDERED: HYDROcodone/Acetaminophen 5/325 mg Tablet PO PRN (17:51)
[2023-04-24] MEDS ORDERED: Lidocaine 1% PF 5 ML VIAL ONE (17:53)
[2023-04-24] MEDS ORDERED: Ondansetron PF 4 MG/2 ML Vial ONE (17:59)
[2023-04-24] MEDS ORDERED: Ketorolac Tromethamine 30 MG (1 mL) VIAL ONE (17:59)
[2023-04-24] MEDS ORDERED: Dexamethasone 20 MG/5 ML VIAL ONE (17:59)
[2023-04-24] MEDS ORDERED: Communication Order-Pharmacy FS SCH (18:00)
[2023-04-24] MEDS ORDERED: HYDROmorphone 2 MG/ML VIAL ONE (18:46)
[2023-04-24] MEDS: Aspirin 81 mg Enteric Coated Tablet PO SCH (22:06)
[2023-04-24] MEDS: Acetaminophen 325 MG TAB PO PRN (22:16)
[2023-04-25] MEDS: Ketorolac Tromethamine 30 MG (1 mL) VIAL IVP SCH (00:07)
[2023-04-25] MEDS: TETANUS, DIPHTHERIA TOX,ADULT (TDVAX) 0.5 ML VIAL IM ONE (02:24)
[2023-04-25 13:17] VITALS: BP 140/81; TEMP 98.1
== END 2023-04-25 14:45 | disposition home or self-care (01) | DRG 580 ==
LOC: ERS 15:12 → SDC/OP 17:00 → SURG A 21:35
PROVIDERS: ADMIT Orthopaedic Surgery Hand Surgery; ATTEND Hospitalist
PROC: 01Q50ZZ Repair Median Nerve, Open Approach (ICD-10-PCS; 2023-04-17)
PROC: 0LB50ZZ Excision of Right Lower Arm and Wrist Tendon, Open Approach (ICD-10-PCS; 2023-04-17)
PROC: 0LD70ZZ Extraction of Right Hand Tendon, Open Approach (ICD-10-PCS; 2023-04-21)
PROC: 0JDG0ZZ Extraction of Right Lower Arm Subcutaneous Tissue and Fascia, Open Approach (ICD-10-PCS; principal; 2023-04-24)
DX: L02.413 Cutaneous abscess of right upper limb (principal); E11.52 Type 2 diabetes mellitus with diabetic peripheral angiopathy with gangrene; Z79.82 Long term (current) use of aspirin; Z79.4 Long term (current) use of insulin; Z79.899 Other long term (current) drug therapy; I10 Essential (primary) hypertension; Z98.890 Other specified postprocedural states; F17.210 Nicotine dependence, cigarettes, uncomplicated
CPT/HCPCS: 36415; 36416; 80048; 80053; 80170; 80202; 82150; 83690; 85025; 86140; 87070; 87076; 87077; 87186; 87205; 90471; 90686; 97139; 99284; G0008; J0295; J0665; J1100; J1170; J1580; J1815; J1885; J2001; J2250; J2270; J2405; J2704; J2765; J3010; J3370; J3490